=== PATIENT | male | born 1935 | race Caucasian/White ===

== ENCOUNTER 2016-03-04 13:00 | Emergency (ER) | payer MEDICARE, MEDICAID ==
[2016-03-04] MEDS ORDERED: DIPH,PERTUS(ACELL)TETVAC-LF 0.5 ML VIAL IM ONE (13:30)
[2016-03-04] MEDS ORDERED: TOPICAL SKIN ADHESIVE 1 EACH AMP TOPICAL ONE (13:30)
--- NOTE | 2016-03-04 13:33 | ED ---
General Adult HPI - General Chief complaint: Fall Stated complaint: Fall - Facial Injury Time Seen by Provider: 03/04/16 13:16 Source: patient, family, RN notes reviewed Mode of arrival: ambulatory Limitations: physical limitation - History of Present Illness Initial comments: Patient is an 80-year-old male who presents emergency room today with chief complaint of a fall earlier today. Patient does admit that he was getting out of bed and tripped fell hit his nose on the corner of the bedframe causes laceration. States unsure of his tetanus status. Denies any loss conscious. Denies any history of blood thinners. Denies any other complaints are associated symptoms. Patient denies any recent fever, chills, shortness of breath, chest pain, back pain, abdominal pain, nausea or vomiting, numbness or tingling, dysuria or hematuria, constipation or diarrhea, headaches or visual changes, or any other complaints. - Related Data Allergies Allergy/AdvReac Type Severity Reaction Status Date / Time cephalexin [From Keflex] Allergy Unknown Verified 03/04/16 13:06 Review of Systems ROS Statement: Those systems with pertinent positive or pertinent negative responses have been documented in the HPI. ROS Other: All systems not noted in ROS Statement are negative. Past Medical History Past Medical History: Diabetes Mellitus Additional Past Medical History / Comment(s): parkinsons, psoriasis History of Any Multi-Drug Resistant Organisms: None Reported Past Surgical History: Ear Surgery, Hernia Repair, Orthopedic Surgery Past Psychological History: Depression Smoking Status: Never smoker Past Alcohol Use History: None Reported Past Drug Use History: None Reported General Exam - General Exam Comments Initial Comments: General: The patient is awake and alert, in no distress, and does not appear acutely ill. Eye: Pupils are equal, round and reactive to light, extra-ocular movements are intact. No nystagmus. There is normal conjunctiva bilaterally. No signs of icterus. Ears, nose, mouth and throat: There are moist mucous membranes and no oral lesions. Neck: The neck is supple, there is no tenderness or JVD. Cardiovascular: There is a regular rate and rhythm. No murmur, rub or gallop is appreciated. Respiratory: Lungs are clear to auscultation, respirations are non-labored, breath sounds are equal. No wheezes, stridor, rales, or rhonchi. Musculoskeletal: Normal ROM, no tenderness. Strength 5/5. Sensation intact. Pulses equal bilaterally 2+. Neurological: A&O x 3. CN II-XII intact, There are no obvious motor or sensory deficits. Coordination appears grossly intact. Speech is normal. Skin: Does have a 1.5 cm linear laceration to the right side of his nose. No active bleeding. Psychiatric: Cooperative, appropriate mood & affect, normal judgment. Limitations: physical limitation Course Vital Signs 03/04/16 13:02 Temperature 98.1 F Pulse Rate 64 Respiratory 20 Rate Blood Pressure 127/60 O2 Sat by Pulse 96 Oximetry Procedures - Procedures Initial comment: Patient does have 1.5 cm linear laceration to the right side of her nose. No active bleeding. Wound edges approximated. Cleaned with saline. Closed with Dermabond. Patient tolerated well. Medical Decision Making - Medical Decision Making 80-year-old male presenting with a fall. Laceration to the right side of his nose. Tetanus will be updated. Laceration is closed here in emergency room. Patient has no other complaints. Patient discharged home. Disposition Clinical Impression: Laceration, Fall Disposition: HOME SELF-CARE Condition: Good Instructions: Laceration (ED) Additional Instructions: Please allow glue to fall off on his own over the next 3-5 days. Watch for any signs of infection which may include increased pain, redness, fever or chills. Please return to emergency room for any other concerns. Time of Disposition: 13:32
[2016-03-04 13:59] VITALS: BP 106/56; PULSE 66; RESP 16; TEMP 97.9
== END 2016-03-04 14:15 | disposition home or self-care (01) ==
LOC: EC 13:00
DX: S01.21XA Laceration without foreign body of nose, initial encounter (principal); Z23 Encounter for immunization; W01.190A Fall on same level from slipping, tripping and stumbling with subsequent striking against furniture, initial encounter; Z88.1 Allergy status to other antibiotic agents
CPT/HCPCS: 12011; 90471; 90715; 99283

== ENCOUNTER 2017-09-28 18:56 | Emergency (ER) | payer MEDICAID, MEDICARE ==
--- NOTE | 2017-09-28 20:36 | ED ---
General Adult HPI - General Chief complaint: Skin/Abscess/Foreign Body Stated complaint: Rash/Blisters Hands Time Seen by Provider: 09/28/17 20:11 Source: family Mode of arrival: ambulatory Limitations: physical limitation - History of Present Illness Initial comments: 82-year-old male presents to the emergency department for a chief complaint of rash to the palms of the hands times one day. Patient does have an extensive history of psoriasis which worsens when he is stressed. However, psoriasis has not presented like this in the past. Patient's recently had a hip fracture and patient had to cancel his appointment with his industrial hygienist. Patient denies starting any new medications. Patient denies working with any different chemicals or changing detergents. Patient denies any other problems at this time. Patient does not have pain when he touches the vesicles but states it does hurt if he makes a fist. Patient denies fevers or chills at home. Patient sees Dr. Salazar as a industrial hygienist out of [facility].Patient has no other complaints at this time including shortness of breath, chest pain, abdominal pain, nausea or vomiting, headache, or visual changes. - Related Data Home Medications Medication Instructions Recorded Confirmed Multivitamin [Men's Multi-Vitamin] 1 tab PO DAILY 03/04/16 03/04/16 Previous Rx's Medication Instructions Recorded Hydrocortisone Cream 1 applic TOPICAL BID 7 Days gm 09/28/17 [Hydrocortisone 2.5% Cream] Sulfamethox-Tmp 800-160Mg [Bactrim 1 tab PO Q12HR #14 tab 09/28/17 DS 800-160 mg] predniSONE 40 mg PO DAILY 5 Days tab 09/28/17 Allergies Allergy/AdvReac Type Severity Reaction Status Date / Time cephalexin [From Keflex] Allergy Unknown Verified 09/28/17 19:36 Review of Systems ROS Statement: Those systems with pertinent positive or pertinent negative responses have been documented in the HPI. ROS Other: All systems not noted in ROS Statement are negative. Past Medical History Past Medical History: Diabetes Mellitus Additional Past Medical History / Comment(s): parkinsons, psoriasis History of Any Multi-Drug Resistant Organisms: None Reported Past Surgical History: Ear Surgery, Hernia Repair, Orthopedic Surgery Past Psychological History: Depression Smoking Status: Never smoker Past Alcohol Use History: None Reported Past Drug Use History: None Reported General Exam Limitations: physical limitation General appearance: alert, in no apparent distress Head exam: Present: atraumatic, normocephalic, normal inspection Eye exam: Present: normal appearance. Absent: scleral icterus, conjunctival injection ENT exam: Present: normal exam, mucous membranes moist Neck exam: Present: normal inspection. Absent: tenderness, meningismus, lymphadenopathy Respiratory exam: Present: normal lung sounds bilaterally Cardiovascular Exam: Present: regular rate, normal rhythm, normal heart sounds. Absent: systolic murmur, diastolic murmur, rubs, gallop, clicks Extremities exam: Present: full ROM (Full range of motion of both hands bilaterally as well as both arms), normal capillary refill (Capillary refill less than 2 seconds in both hands bilaterally and radial and ulnar pulses 2+.), other (Patient has multiple small <0.5 cm x 0.5cm vesicles on the palms of the hands bilaterally. No spreading redness or streaking redness. Clear fluid noted in some of the vesicles. No vesicles on the arm or other parts of the body although patient does have psoriasis on the upper arms as well as left abdomen.) Course Vital Signs 09/28/17 19:34 Temperature 97.5 F L Pulse Rate 64 Respiratory 18 Rate Blood Pressure 138/64 O2 Sat by Pulse 98 Oximetry Medical Decision Making - Medical Decision Making 82-year-old male with multiple vesicles on the palms of the hands. Patient has an extensive history of psoriasis. Patient unfortunately had to cancel dermatology appointment. Nontender to palpation but patient does have some pain when making a fist with both hands bilaterally. No signs of infection at this time. I did try to contact his industrial hygienist but unfortunately the industrial hygienist cushion sewer for him was not able to give advice. At this time patient appears to have a dyshidrotic eczema and will be treated with steroids topically and oral. Patient will be covered with Bactrim. Dr Craig also saw patient. He is to follow-up with his industrial hygienist as soon as possible. He is to return to the emergency department if he has any worsening symptoms. Patient agrees with this discharge plan. Disposition Clinical Impression: Dyshidrotic eczema Disposition: HOME SELF-CARE Condition: Good Instructions: Dyshidrotic Eczema (ED) Additional Instructions: Please take prescriptions as directed. Please follow-up with your industrial hygienist as soon as possible on Sunday or earlier. Return to the emergency department if you have any worsening symptoms. Prescriptions: Hydrocortisone Cream [Hydrocortisone 2.5% Cream] 1 applic TOPICAL BID 7 Days gm predniSONE 40 mg PO DAILY 5 Days tab Sulfamethox-Tmp 800-160Mg [Bactrim DS 800-160 mg] 1 tab PO Q12HR #14 tab Is patient prescribed a controlled substance at d/c from ED?: No Referrals: Shiva Storm MD [Primary Care Provider] - 1-2 days Marin Vázquez MD [STAFF PHYSICIAN] - 1-2 days Time of Disposition: 21:49
[2017-09-28 22:05] VITALS: BP 159/7; PULSE 53; RESP 16; TEMP 97.9
== END 2017-09-28 22:03 | disposition home or self-care (01) ==
LOC: EC 18:56
DX: L30.1 Dyshidrosis [pompholyx] (principal); Z87.2 Personal history of diseases of the skin and subcutaneous tissue; Z88.1 Allergy status to other antibiotic agents
CPT/HCPCS: 99282

== ENCOUNTER → 2017-12-31 | Outpatient (CLI) | payer MEDICAID, MEDICARE ==
--- NOTE | 2017-12-31 16:37 | XR ---
EXAMINATION TYPE: XR chest 2V DATE OF EXAM: 12/31/2017 COMPARISON: NONE HISTORY: Shortness of breath, trauma and pain to right hip TECHNIQUE: Frontal and lateral views of the chest are obtained. FINDINGS: Patient is rotated. There is no focal air space opacity, pleural effusion, or pneumothorax seen. The cardiac silhouette size is within normal limits. The osseous structures are intact. The aorta is dense. Strand-like densities likely reflect some scarring within the lungs. IMPRESSION: No acute cardiopulmonary process.
--- NOTE | 2017-12-31 16:38 | XR ---
Right hip HISTORY: Trauma and pain 2 views of the right hip Bone mineralization, joint spaces and alignment are maintained. IMPRESSION: No fracture or dislocation.
== END | disposition home or self-care (01) ==
LOC: RADXRMAIN 13:57
PROVIDERS: ATTEND Internal Medicine Geriatric Medicine
DX: R06.02 Shortness of breath (principal); Z91.81 History of falling
CPT/HCPCS: 71046; 73502

== ENCOUNTER 2019-12-11 14:59 | Inpatient (IN) | payer MEDICARE, MEDICAID, OTHER ==
[2019-12-11 16:13] LABS: Basophils % (A) 0 %; Eosinophils # (A) 0.1 k/uL (0-0.7); Eosinophils % (A) 1 %; HCT 36.8 % (39.0-53.0); HGB 11.4 gm/dL (13.0-17.5); Lymphocytes # (A) 0.8 k/uL (1.0-4.8); Lymphocytes % (A) 5 %; MCH 30.5 pg (25.0-35.0); MCV 98.4 fL (80.0-100.0); Macrocytosis Slight; Mean Platelet Volume 8.4; Monocytes # (A) 0.4 k/uL (0-1.0); Monocytes % (A) 2 %; Neutrophils # (A) 14.9 k/uL (1.3-7.7); Neutrophils % (A) 92 %; Platelet Count 212 k/uL (150-450); RBC 3.74 m/uL (4.30-5.90); RDW 15.6 % (11.5-15.5); WBC 16.2 k/uL (3.8-10.6)
--- NOTE | 2019-12-11 16:15 | XR ---
EXAMINATION TYPE: XR chest 2V DATE OF EXAM: 12/11/2019 CLINICAL HISTORY: Cough TECHNIQUE: Frontal and lateral views of the chest are obtained. COMPARISON: 01/07/2018 chest radiograph FINDINGS: Low lung volumes accentuates the lung markings. The cardiac silhouette is within normal li mits for size. Calcified atherosclerotic disease of the thoracic aorta. There is no focal air space o pacity, pleural effusion. No pneumothorax, although there is soft tissue overlapping the bilateral aracely ng apices. Degenerative changes of the spine. IMPRESSION: No focal airspace opacity.
--- NOTE | 2019-12-11 16:17 | ED ---
General Adult HPI <Abdulaziz Tamayo - Last Filed: 12/11/19 17:05> - General Source: patient, EMS, RN notes reviewed, old records reviewed Mode of arrival: EMS Limitations: no limitations <Adam Aguilar - Last Filed: 12/11/19 18:18> - General Chief complaint: Skin/Abscess/Foreign Body Stated complaint: Auto immune flare up Time Seen by Provider: 12/11/19 15:20 - History of Present Illness Initial comments: 84-year-old male patient past history of psoriasis as well as bullous pemphigoid presents to ED after being sent in by Dr. Storm's nurse practitioner for failed outpatient treatment of acute flare of his bullous pemphigoid. Has been on IV steroids for at least last 4 days. Also has a poorly and having some drainage. Lesions are noted on his ankles wrists and elbows. Patient denying any pain or any other acute complaints. Patient does have a mild cough. Systemic: Pt denies fatigue, fever/chills. Pt denies weakness, night sweats, weight loss. Neuro: Pt denies headache, visual disturbances, syncope or pre-syncope. HEENT: Pt denies ocular discharge or irritation, otalgia, rhinorrhea, pharyngitis or notable lymphadenopathy. Cardiopulmonary: Pt denies chest pain, SOB, heart palpitations, dyspnea on exertion. Abdominal/GI: Pt denies abdominal pain, n/v/d. : Pt denies dysuria, burning w/ urination, frequency/urgency. Denies new onset urinary or bowel incontinence. MSK: Pt denies myalgia, loss of strength or function in extremities. Neuro: Pt denies new onset weakness, paresthesias. (Adam Aguilar) - Related Data Home Medications Medication Instructions Recorded Confirmed Multivitamin [Men's Multi-Vitamin] 1 tab PO DAILY@1700 03/04/16 05/20/18 Allopurinol [Zyloprim] 300 mg PO DAILY 01/07/18 05/20/18 Atorvastatin [Lipitor] 10 mg PO HS 01/07/18 05/20/18 Carbidopa-Levodopa 25-100 mg 1 tab PO BID@1200,2100 01/07/18 05/20/18 [Sinemet 25-100 mg] Carbidopa-Levodopa 25-100 mg 2 tab PO BID@0800,1700 01/07/18 05/20/18 [Sinemet 25-100 mg] Citalopram Hydrobromide [CeleXA] 40 mg PO DAILY@0800 01/07/18 05/20/18 Docusate [Colace] 100 mg PO HS 01/07/18 05/20/18 Furosemide [Lasix] 20 mg PO DAILY 01/07/18 05/20/18 Nabumetone 1,000 mg PO BID 01/07/18 05/20/18 Potassium Chloride [Klor-Con 20] 20 meq PO DAILY@1700 01/07/18 05/20/18 Sennosides [Senna] 8.6 mg PO DAILY 01/07/18 05/20/18 Tamsulosin HCl [Flomax] 0.4 mg PO HS 01/07/18 05/20/18 metFORMIN HCL [Glucophage] 500 mg PO BID@0800,1700 01/07/18 05/20/18 predniSONE 40 mg PO DAILY@0800 01/07/18 05/20/18 ARIPiprazole [Abilify] 10 mg PO DAILY 05/20/18 05/20/18 Acetaminophen [Tylenol] 650 mg PO Q4H PRN 05/20/18 05/20/18 Famotidine [Pepcid] 20 mg PO DAILY 05/20/18 05/20/18 INSULIN ASPART (NovoLOG) [NovoLOG See Protocol SQ ACHS 05/20/18 05/20/18 (formulary)] Lactulose [Cephulac] 30 gm PO BID@0800,1700 05/20/18 05/20/18 Latanoprost/Pf [Latanoprost 0.005% 1 drop BOTH EYES DAILY 05/20/18 05/20/18 Eye Drop] Magnesium Hydroxide [Milk of 7,200 mg PO DAILY PRN 05/20/18 05/20/18 Magnesia Concentrate] Na Phos,M-B/Na Phos,Di-Ba [Fleet 133 ml RECTAL DAILY PRN 05/20/18 05/20/18 Adult] bisacodyL [Dulcolax] 10 mg RECTAL DAILY PRN 05/20/18 05/20/18 hydrOXYzine HCL 10 mg PO Q6HR PRN 05/20/18 05/20/18 Previous Rx's Medication Instructions Recorded Acetaminophen-Codeine 300-30mg 1 tab PO Q8H PRN #9 tab 05/23/18 [Tylenol w/codeine #3] Amoxic-Pot Clav 875-125Mg 1 each PO Q12HR #12 tab 05/23/18 [Augmentin 875-125] clonazePAM 1 mg PO TID@0800,1400,2000 #9 05/23/18 tablet Allergies Allergy/AdvReac Type Severity Reaction Status Date / Time cephalexin [From Keflex] Allergy Unknown Verified 12/11/19 18:01 Review of Systems ROS Other: All systems not noted in ROS Statement are negative. <Abdulaziz Tamayo - Last Filed: 12/11/19 17:05> ROS Other: All systems not noted in ROS Statement are negative. <Adam Aguilar - Last Filed: 12/11/19 18:18> ROS Statement: Those systems with pertinent positive or pertinent negative responses have been documented in the HPI. Past Medical History Past Medical History: Diabetes Mellitus, GERD/Reflux, Hyperlipidemia, Osteoarthritis (OA), Prostate Disorder Additional Past Medical History / Comment(s): parkinsons, psoriasis, gout , constipation, prostate disorder, overactive bladder, GERD, hyperlipidemia, falls, gait dysfunction.bullous Pemphigoid - autoimmune skin disorder. [place] palsy recent urinary tract infection sleep apnea will not wear machine History of Any Multi-Drug Resistant Organisms: ESBL Date of last positivie culture/infection: 08/17/19 ESBL E.coli MDRO Source:: Urine Past Surgical History: Ear Surgery, Hernia Repair, Orthopedic Surgery Additional Past Surgical History / Comment(s): Bilateral cataracts, vasectomy Past Anesthesia/Blood Transfusion Reactions: Unable to Obtain Past Psychological History: Anxiety, Depression Smoking Status: Never smoker Past Alcohol Use History: None Reported Past Drug Use History: None Reported - Past Family History Mother Family Medical History: Diabetes Mellitus Father Family Medical History: No Reported History Additional Family Medical History / Comment(s): Anxiety Brother(s) Family Medical History: No Reported History Sister(s) Family Medical History: No Reported History Daughter(s) Family Medical History: No Reported History Son(s) Family Medical History: No Reported History <Adam Aguilar - Last Filed: 12/11/19 18:18> General Exam Limitations: no limitations <Adam Aguilar - Last Filed: 12/11/19 18:18> - General Exam Comments Initial Comments: Constitutional: NAD, AOX3, Pt has pleasant affect. HEENT: NC/AT, trachea midline, neck supple, no lymphadenopathy. External ears appear normal, without discharge. Mucous membranes moist. Eyes PERRLA, EOM intact. There is no scleral icterus. No pallor noted. Cardiopulmonary: RRR, no murmurs, rubs or gallops, no JVD noted. Lungs CTAB in anterior and posterior clemens. No peripheral edema. Abdominal exam: Abdomen soft and non-distended. Abdomen non-tender to palpation in all 4 quadrants. Bowel sounds active in LLQ. No hepatosplenomegaly. No ecchymosis Neuro: CN II-XII grossly intact. No nuchal rigidity. No raccon eyes, no mckeon sign, no hemotympanum. No cervical spinal tenderness. MSK:. Full active ROM in upper and lower extremities. Bullous lesions noted bilateral E, bilateral wrists and elbows. No streaking or obvious infection noted. No significant purulent drainage is noted. (Adam Aguilar) Course <Abdulaziz Tamayo - Last Filed: 12/11/19 17:05> Vital Signs 12/11/19 12/11/19 12/11/19 15:01 15:09 17:49 Temperature 97.6 F 97.9 F Pulse Rate 66 65 Respiratory 16 22 18 Rate Blood Pressure 146/93 128/69 O2 Sat by Pulse 99 100 Oximetry - Reevaluation(s) Reevaluation #1: 12/11/19 17:05 PA supervision: I pursued a [id number] evaluation the patient. He did present with failed outpatient treatment for bullous pemphigoid he has been on steroids in the lesions are getting more numerous and worse. Mostly on the extremities. Patient does demonstrate bullous lesions to the extremities both hands and both feet. I did discuss the case with the patient's as well as with Dr. Storm. Patient will be admitted with consultation to dermatology as well as infectious disease 12/11/19 17:06 (Abdulaziz Tamayo) Medical Decision Making - Lab Data Result diagrams: 12/11/19 15:53 12/11/19 15:53 <bAdulaziz Tamayo - Last Filed: 12/11/19 17:05> - Lab Data Result diagrams: 12/11/19 15:53 12/11/19 15:53 <Adam Aguilar - Last Filed: 12/11/19 18:18> - Medical Decision Making 84-year-old male patient proceeded for evaluation of acute exacerbation of bullous pemphigoid. Patient vital signs stable, afebrile. Physical exam didn't display these procedures described lesions. Laboratory investigations revealed mild leukocytosis. Case was discussed with Dr. Tamayo discussed case with Dr. Storm requested Solu-Medrol 60 mg every 6, doxycycline 100 mg twice a day. Patient has been having a mild cough. There have reportedly been a few cases of coronavvirus at his custodial. Patient placed on droplet precautions with pending coronavirus virus test. Case discussed with Dr. Tamayo. (Adam Aguilar) - Lab Data Lab Results 12/11/19 12/11/19 12/11/19 Range/Units 15:53 15:53 15:53 WBC 16.2 H (3.8-10.6) k/uL RBC 3.74 L (4.30-5.90) m/uL Hgb 11.4 L (13.0-17.5) gm/dL Hct 36.8 L (39.0-53.0) % MCV 98.4 (80.0-100.0) fL MCH 30.5 (25.0-35.0) pg MCHC 31.0 (31.0-37.0) g/dL RDW 15.6 H (11.5-15.5) % Plt Count 212 (150-450) k/uL Neutrophils % 92 % Lymphocytes % 5 % Monocytes % 2 % Eosinophils % 1 % Basophils % 0 % Neutrophils # 14.9 H (1.3-7.7) k/uL Lymphocytes # 0.8 L (1.0-4.8) k/uL Monocytes # 0.4 (0-1.0) k/uL Eosinophils # 0.1 (0-0.7) k/uL Basophils # 0.0 (0-0.2) k/uL Macrocytosis Slight Sodium 138 (137-145) mmol/L Potassium 4.4 (3.5-5.1) mmol/L Chloride 103 (98-107) mmol/L Carbon Dioxide 26 (22-30) mmol/L Anion Gap 9 mmol/L BUN 57 H (9-20) mg/dL Creatinine 1.08 (0.66-1.25) mg/dL Est GFR (CKD-EPI)AfAm 72 (>60 ml/min/1.73 sqM) Est GFR (CKD-EPI)NonAf 62 (>60 ml/min/1.73 sqM) Glucose 150 H (74-99) mg/dL Plasma Lactic Acid Robin 2.0 (0.7-2.0) mmol/L Calcium 9.4 (8.4-10.2) mg/dL Total Bilirubin 0.7 (0.2-1.3) mg/dL AST 22 (17-59) U/L ALT 8 (4-49) U/L Alkaline Phosphatase 89 (38-126) U/L Total Protein 6.4 (6.3-8.2) g/dL Albumin 3.5 (3.5-5.0) g/dL Disposition <Abdulaziz Tamayo - Last Filed: 12/11/19 17:05> <Adam Aguilar - Last Filed: 12/11/19 18:18> Clinical Impression: Cough, Bullous pemphigoid Disposition: ADMITTED IP TO THIS [facility] Condition: Serious
[2019-12-11 16:23] LABS: Albumin 3.5 g/dL (3.5-5.0); Calcium 9.4 mg/dL (8.4-10.2); Potassium 4.4 mmol/L (3.5-5.1); Total Bilirubin 0.7 mg/dL (0.2-1.3); Total Protein 6.4 g/dL (6.3-8.2)
[2019-12-11] MEDS ORDERED: PIPERACILLIN-TAZOBACTAM 3.375 GM in SODIUM CHLORIDE 0.9% 100 ML IVPB STA (16:43)
[2019-12-11] MEDS ORDERED: ACETAMINOPHEN TAB 325 MG TAB PO PRN ×2 (17:30→18:35)
[2019-12-11] MEDS ORDERED: NALOXONE 0.4 MG/ML 1 ML VIAL IV PRN (17:30)
[2019-12-11] MEDS ORDERED: MAGNESIUM HYDROXIDE 2,400 MG/10 ML CUP PO PRN (18:35)
[2019-12-11] MEDS ORDERED: Acetaminophen-Codeine 300-30mg TAB PO PRN (18:35)
[2019-12-11] MEDS ORDERED: NA PHOS,M-B/NA PHOS,DI-BA 133 ML ENEMA RECTAL PRN (18:35)
[2019-12-11] MEDS ORDERED: bisacodyL 10 MG SUPP RECTAL PRN (18:35)
[2019-12-11] MEDS ORDERED: LACTULOSE 20 GM/30 ML CUP PO PRN (18:35)
[2019-12-11] MEDS ORDERED: LOPERAMIDE 2 MG CAP PO PRN (18:35)
[2019-12-11] MEDS: methylPREDNISolone SOD SUCCI 125 MG/2 ML VIAL IV SCH ×2 (19:24→23:53)
[2019-12-11] MEDS ORDERED: ALBUTEROL NEBULIZED 2.5 MG/3 ML INHALATION PRN (20:27)
[2019-12-11] MEDS ORDERED: HYDROmorphone 1 MG/ML 1 ML SYRINGE IVP PRN (20:28)
[2019-12-11 21:44] LABS: Glucose,Whole Blood 169 mg/dL (75-99)
[2019-12-11] MEDS: ATORVASTATIN 10 MG TAB PO SCH (21:49)
[2019-12-11] MEDS: INSULIN ASPART (NovoLOG) 100 UNIT/ML VIAL SQ SCH (21:50)
[2019-12-11] MEDS: DOXYCYCLINE 100 MG in SODIUM CHLORIDE 0.9% 100 ML IVPB SCH (21:50)
[2019-12-11] MEDS: CARBIDOPA-LEVODOPA 25-100 MG 1 EACH TAB PO SCH (21:50)
[2019-12-11] MEDS: LATANOPROST 0.005% OPHTH DROPS 2.5 ML BTL BOTH EYES SCH (21:50)
[2019-12-11] MEDS ORDERED: VANCOMYCIN IV PER PHARMACY 1 EACH MISC MISCELLANE PRN (22:02)
--- NOTE | 2019-12-11 23:01 | P.HPIM ---
History of Present Illness H&P Date: 12/11/19 Chief Complaint: Bullous pemphigoid exacerbation, fever and chills, generalized cellulitis, 84-year-old male one of my office patient has been in [facility] for the last 3 years with history of advance psoriasis, history of pemphigoid with recurrent exacerbation every 2 years who has been on steroids for the last few weeks who also had significant Parkinson disease, type 2 diabetes, hypertension and hyperlipidemia. Patient developed to have worsening pemphigoid symptoms with bulla all over his body including the upper extremity, the left elbow, the sacrum area, partially is Fiona Do as well with multiple water blister rupturing and causing secondary cellulitis. Despite being on steroid and having to do full 48 hours of Solu-Medrol injection did not help his symptoms. Patient continued to be symptomatic with fever chills worsening pain and recurrent new pemphigoid. Patient was directly to the emergency department where was seen and evaluated his white blood cell was 16,000 left shifted his bun was 57 with stage II chronic kidney disease blood sugar was mildly elevated patient was started on Solu-Medrol IV will consult dermatology and infectious disease also a Chin was started on vancomycin IV culture was done already pain management was started on Dilaudid as well along with topical care continue gentle hydration. To my surprise patient started to have mild aspiration sign with slight cough and congestion. Will start him on updraft along with O2 follow his chest x-ray from the ER showed low lung volume with no focal airspace opacity. Review of Systems CONSTITUTIONAL: Well-developed no acute respiratory distress. EYES: No icterus sclerae, no conjunctivitis. EARS, NOSE, MOUTH, THROAT, and FACE: No sore throat, lymphadenopathy, carotid bruits or deformity. RESPIRATORY: Significant shortness of breath mild cough wheezes. CARDIOVASCULAR: Positive PND at 70 palpitation. GASTROINTESTINAL: No Abd pain, Nausea or vomiting, no Diarrhea or constipation, No GI Bleed, no distention or masses. GENITOURINARY: Negative for Hematuria or UTI, no kidney stones. INTEGUMENT/BREAST: Positive pemphigoid with worsening symptoms generalized muscle and joint pain as well. HEMATOLOGIC/LYMPHATIC: Negative for bleed or purpura. MUSCULOSKELTAL: Negative for Myalgia or arthralgia. NEURLOGICAL: Positive Parkinson disease mild change mental status slight confusion. BEHAVIORAL/PSYCH: Negative. ENDOCRINE: Negative. Past Medical History Past Medical History: Diabetes Mellitus, GERD/Reflux, Hyperlipidemia, Osteoarthritis (OA), Prostate Disorder Additional Past Medical History / Comment(s): parkinsons, psoriasis, gout , constipation, prostate disorder, overactive bladder, GERD, hyperlipidemia, falls, gait dysfunction.bullous Pemphigoid - autoimmune skin disorder. [place] palsy recent urinary tract infection sleep apnea will not wear machine History of Any Multi-Drug Resistant Organisms: ESBL Date of last positivie culture/infection: 08/17/19 ESBL E.coli MDRO Source:: Urine Past Surgical History: Ear Surgery, Hernia Repair, Orthopedic Surgery Additional Past Surgical History / Comment(s): Bilateral cataracts, vasectomy, bilateral knees Past Anesthesia/Blood Transfusion Reactions: Unable to Obtain Past Psychological History: Anxiety, Depression Smoking Status: Never smoker Past Alcohol Use History: None Reported Past Drug Use History: None Reported - Past Family History Mother Family Medical History: Diabetes Mellitus Father Family Medical History: No Reported History Additional Family Medical History / Comment(s): Anxiety Brother(s) Family Medical History: No Reported History Sister(s) Family Medical History: No Reported History Daughter(s) Family Medical History: No Reported History Son(s) Family Medical History: No Reported History Medications and Allergies Home Medications Medication Instructions Recorded Confirmed Type Multivitamin [Men's Multi-Vitamin] 1 tab PO DAILY@1200 03/04/16 12/11/19 History Allopurinol [Zyloprim] 300 mg PO DAILY@0800 01/07/18 12/11/19 History Atorvastatin [Lipitor] 10 mg PO HS@209901/07/18 12/11/19 History Carbidopa-Levodopa 25-100 mg 1 tab PO BID@1200,209901/07/18 12/11/19 History [Sinemet 25-100 mg] Carbidopa-Levodopa 25-100 mg 2 tab PO BID@0800,1700 01/07/18 12/11/19 History [Sinemet 25-100 mg] Nabumetone 1,000 mg PO BID@0800,1700 01/07/18 12/11/19 History Potassium Chloride [Klor-Con 20] 20 meq PO DAILY@0800 01/07/18 12/11/19 History Sennosides [Senna] 8.6 mg PO DAILY@0800 01/07/18 12/11/19 History Tamsulosin HCl [Flomax] 0.4 mg PO DAILY@0800 01/07/18 12/11/19 History metFORMIN HCL [Glucophage] 500 mg PO BID@0800,1700 01/07/18 12/11/19 History Acetaminophen [Tylenol] 650 mg PO Q4H PRN 05/20/18 12/11/19 History Lactulose [Cephulac] 30 gm PO DAILY PRN 05/20/18 12/11/19 History Latanoprost/Pf [Latanoprost 0.005% 1 drop BOTH EYES HS@2100 05/20/18 12/11/19 History Eye Drop] Magnesium Hydroxide [Milk of 7,200 mg PO DAILY PRN 05/20/18 12/11/19 History Magnesia Concentrate] Na Phos,M-B/Na Phos,Di-Ba [Fleet 133 ml RECTAL DAILY PRN 05/20/18 12/11/19 History Adult] bisacodyL [Dulcolax] 10 mg RECTAL DAILY PRN 05/20/18 12/11/19 History Acetaminophen-Codeine 300-30mg 1 tab PO Q8H PRN #9 tab 05/23/18 12/11/19 Rx [Tylenol w/codeine #3] ARIPiprazole [Abilify] 5 mg PO DAILY@0800 12/11/19 12/11/19 History Brimonidine Tartrate/Timolol 1 drop BOTH EYES BID@0800,1700 12/11/19 12/11/19 History [Combigan 0.2%-0.5% Eye Drops] Docusate [Colace] 100 mg PO DAILY@1700 12/11/19 12/11/19 History Dorzolamide HCl [Trusopt 2%] 1 drop BOTH EYES BID@0800,1700 12/11/19 12/11/19 History Furosemide [Lasix] 40 mg PO DAILY@0800 12/11/19 12/11/19 History Furosemide [Lasix] 40 mg PO Q48H 12/11/19 12/11/19 History Insulin Aspart See Protocol SQ 12/11/19 12/11/19 History ACHS@07,11,1630,2130 Loperamide HCl [Imodium A-D] 4 mg PO DAILY PRN MDD 4 tabs/24hr 12/11/19 12/11/19 History PARoxetine [Paxil] 10 mg PO DAILY@0800 12/11/19 12/11/19 History clonazePAM 1 mg PO TID@0800,1200,1700 12/11/19 12/11/19 History predniSONE 30 mg PO DAILY 12/11/19 12/11/19 History predniSONE [Deltasone] 40 mg PO DAILY@0800 12/11/19 12/11/19 History Allergies Allergy/AdvReac Type Severity Reaction Status Date / Time cephalexin [From Keflex] Allergy Unknown Verified 12/11/19 18:01 Physical Exam Vitals: Vital Signs Temp Pulse Pulse Resp BP BP Pulse Ox 12/11/19 20:00 97.9 F 71 173/78 96 12/11/19 17:49 97.9 F 65 18 128/69 100 12/11/19 15:09 22 12/11/19 15:01 97.6 F 66 16 146/93 99 Intake and Output 12/11/19 12/11/19 12/11/19 06:59 14:59 22:59 Other: Weight 122.47 kg General Appearance: Alert, cooperative, no distress, appears stated age. Neck HEENT: Supple, no lymphadenopathy, no thyroid enlargement, positive slight dermatitis in the neck area. Lungs: Decreased breaths home bilaterally with fine rhonchi specially the right side has mild expiratory wheezes. Chest Wall: Decrease expansion with deep inspiration no tenderness and no deformity was found on exam, no costochondral pain or discomfort. Heart: Regular rate and rhythm, S1, S2 , positive S3 with systolic murmur. Back: Symmetric, no curvature, ROM normal, no CVA tenderness. Large spot of pemphigoid on the sacrum. Abdomen: Soft, non-tender, bowel sounds active all four quadrants, no masses, no organomegaly. Few spot of large psoriasis and abdominal area with to spot of pemphigoid as well. Extremities: Positive pemphigoid in both wrists and with large blister on the left wrist area this structure with dressing was done at the time of exam, lower extremity patient has pemphigoid on the knee especially the left compared to the right side with an area on the ankle area side by side with several smaller areas well. Pulses: 2+ and symmetric. Skin: Skin color, texture, tugor normal, no rashes or lesions. Neurologic: Alert oriented slight confusion, cranial nerves II through XII intact, positive generalized weakness positive resting tremor with typical parkinsonism. Generalized weakness bilaterally. Results CBC & Chem 7: 12/11/19 15:53 12/11/19 15:53 Labs: Abnormal Lab Results - Last 24 Hours (Table) 12/11/19 12/11/19 12/11/19 Range/Units 15:53 15:53 21:42 WBC 16.2 H (3.8-10.6) k/uL RBC 3.74 L (4.30-5.90) m/uL Hgb 11.4 L (13.0-17.5) gm/dL Hct 36.8 L (39.0-53.0) % RDW 15.6 H (11.5-15.5) % Neutrophils # 14.9 H (1.3-7.7) k/uL Lymphocytes # 0.8 L (1.0-4.8) k/uL BUN 57 H (9-20) mg/dL Glucose 150 H (74-99) mg/dL POC Glucose (mg/dL) 169 H (75-99) mg/dL Thrombosis Risk Factor Assmnt - DVT/VTE Prophylaxis DVT/VTE Prophylaxis: Pharmacologic Prophylaxis ordered, Mechanical Prophylaxis ordered - Choose All That Apply Any of the Below Risk Factors Present?: Yes Each Factor Represents 1 point: Medical pt on bed rest, Obesity (BMI >25) Other Risk Factors: Yes Each Risk Factor Represents 3 Points: Age 75 years or older Thrombosis Risk Factor Assessment Total Risk Factor Score: 5 Thrombosis Risk Factor Assessment Level: High Risk Assessment and Plan Assessment: 1 severe exacerbation of bullous pemphigoid: Patient was started on Solu-Medrol 60 mg every 6 hours continue medication for now consult infectious disease and dermatology. 2 severe cellulitis on the top of pemphigoid, patient was started on Aztreonam, along with vancomycin and Doxy. Continue current management watching for final culture. 3 type 2 diabetes: Continue Accu-Chek with sliding scales coverage will hold metformin for now and might start Lantus and NovoLog before meals meals. 4 mild congestion and worsening bronchitis with possible aspiration pneumonia: Patient will remain on Vanco along with coverage for gram-negative still on updraft treatment and steroid. 5 advance Parkinson disease: Patient remain on carbidopa levodopa 25/100 mg total of 6 doses a day. Remain on medication. 6 chronic diastolic congestive heart failure: Patient remain on furosemide 40 mg daily and spironolactone. 7 hyperlipidemia: On Lipitor 10 mg daily. 8 chronic gout: Continue patient on Zyloprim 300 mg daily. 9 BPH with urinary retention: Remain on tamsulosin 0.4 mg daily. 10 chronic depression: Continue patient on. 11 DVT prophylaxis: Patient will be continue on subcu heparin. 12 GI prophylaxis: Continue pantoprazole. CODE STATUS: DO NOT RESUSCITATE. Admit patient to the inpatient service for more than 2 night stay.
--- NOTE | 2019-12-11 23:45 | P.CONS ---
History of Present Illness - Reason for Consult Consult date: 12/11/19 Cellulitis and possible pneumonia Requesting physician: Shiva Storm - Chief Complaint Cough and bilateral lower and upper extremity blisters x few days - History of Present Illness Patient is 84-year-old male with a past medical history significant for psoriasis history of pemphigoid this patient who is a [facility] resident patient was noticed to have worsening blister formation on the last few days for the patient has been treated with IV Solu-Medrol at the [facility] however the patient seemed to have progressive worsening and the patient was advised to be evaluated in the ER and subsequent admission Hospital history was provided mostly by the daughter at the bedside as the patient has developed blisters on the bilateral upper extremity as well as in the bilateral feet and the groin area some of them has ruptured with resultant superficial ulceration that is mostly clear fluid drainage no purulence the patient also noticed to have a congested cough but no clear history of any aspiration with these symptoms the patient has been evaluated by the ER physician on arrival to the emergency room the patient was afebrile he did have elevated white was 16,000 creatinine was 1.08, liver enzymes normal patient has been admitted to the hospital infectious disease was considered for further management of antibiotic therapy Review of Systems Positive points has been mentioned in HPI complete review could not be obtained because of his underlying mental status Past Medical History Past Medical History: Diabetes Mellitus, GERD/Reflux, Hyperlipidemia, Osteoarthritis (OA), Prostate Disorder Additional Past Medical History / Comment(s): parkinsons, psoriasis, gout , constipation, prostate disorder, overactive bladder, GERD, hyperlipidemia, falls, gait dysfunction.bullous Pemphigoid - autoimmune skin disorder. [place] palsy recent urinary tract infection sleep apnea will not wear machine History of Any Multi-Drug Resistant Organisms: ESBL Year Discovered:: 08/17/19 ESBL E.coli MDRO Source:: Urine Past Surgical History: Ear Surgery, Hernia Repair, Orthopedic Surgery Additional Past Surgical History / Comment(s): Bilateral cataracts, vasectomy, bilateral knees Past Anesthesia/Blood Transfusion Reactions: Unable to Obtain Past Psychological History: Anxiety, Depression Smoking Status: Never smoker Past Alcohol Use History: None Reported Past Drug Use History: None Reported - Past Family History Mother Family Medical History: Diabetes Mellitus Father Family Medical History: No Reported History Additional Family Medical History / Comment(s): Anxiety Brother(s) Family Medical History: No Reported History Sister(s) Family Medical History: No Reported History Daughter(s) Family Medical History: No Reported History Son(s) Family Medical History: No Reported History Medications and Allergies Home Medications Medication Instructions Recorded Confirmed Type Multivitamin [Men's Multi-Vitamin] 1 tab PO DAILY@1200 03/04/16 12/11/19 History Allopurinol [Zyloprim] 300 mg PO DAILY@0800 01/07/18 12/11/19 History Atorvastatin [Lipitor] 10 mg PO HS@209901/07/18 12/11/19 History Carbidopa-Levodopa 25-100 mg 1 tab PO BID@1200,209901/07/18 12/11/19 History [Sinemet 25-100 mg] Carbidopa-Levodopa 25-100 mg 2 tab PO BID@0800,1700 01/07/18 12/11/19 History [Sinemet 25-100 mg] Nabumetone 1,000 mg PO BID@0800,1700 01/07/18 12/11/19 History Potassium Chloride [Klor-Con 20] 20 meq PO DAILY@0800 01/07/18 12/11/19 History Sennosides [Senna] 8.6 mg PO DAILY@0800 01/07/18 12/11/19 History Tamsulosin HCl [Flomax] 0.4 mg PO DAILY@0800 01/07/18 12/11/19 History metFORMIN HCL [Glucophage] 500 mg PO BID@0800,1700 01/07/18 12/11/19 History Acetaminophen [Tylenol] 650 mg PO Q4H PRN 05/20/18 12/11/19 History Lactulose [Cephulac] 30 gm PO DAILY PRN 05/20/18 12/11/19 History Latanoprost/Pf [Latanoprost 0.005% 1 drop BOTH EYES HS@209905/20/18 12/11/19 History Eye Drop] Magnesium Hydroxide [Milk of 7,200 mg PO DAILY PRN 05/20/18 12/11/19 History Magnesia Concentrate] Na Phos,M-B/Na Phos,Di-Ba [Fleet 133 ml RECTAL DAILY PRN 05/20/18 12/11/19 History Adult] bisacodyL [Dulcolax] 10 mg RECTAL DAILY PRN 05/20/18 12/11/19 History Acetaminophen-Codeine 300-30mg 1 tab PO Q8H PRN #9 tab 05/23/18 12/11/19 Rx [Tylenol w/codeine #3] ARIPiprazole [Abilify] 5 mg PO DAILY@0800 12/11/19 12/11/19 History Brimonidine Tartrate/Timolol 1 drop BOTH EYES BID@0800,1700 12/11/19 12/11/19 History [Combigan 0.2%-0.5% Eye Drops] Docusate [Colace] 100 mg PO DAILY@1700 12/11/19 12/11/19 History Dorzolamide HCl [Trusopt 2%] 1 drop BOTH EYES BID@0800,1700 12/11/19 12/11/19 History Furosemide [Lasix] 40 mg PO DAILY@0800 12/11/19 12/11/19 History Furosemide [Lasix] 40 mg PO Q48H 12/11/19 12/11/19 History Insulin Aspart See Protocol SQ 12/11/19 12/11/19 History ACHS@07,11,1630,2130 Loperamide HCl [Imodium A-D] 4 mg PO DAILY PRN MDD 4 tabs/24hr 12/11/19 12/11/19 History PARoxetine [Paxil] 10 mg PO DAILY@0800 12/11/19 12/11/19 History clonazePAM 1 mg PO TID@0800,1200,1700 12/11/19 12/11/19 History predniSONE 30 mg PO DAILY 12/11/19 12/11/19 History predniSONE [Deltasone] 40 mg PO DAILY@0800 12/11/19 12/11/19 History Allergies Allergy/AdvReac Type Severity Reaction Status Date / Time cephalexin [From Keflex] Allergy Unknown Verified 12/11/19 18:01 Physical Exam Vitals: Vital Signs Temp Pulse Pulse Resp BP BP Pulse Ox 12/11/19 20:00 97.9 F 71 173/78 96 12/11/19 17:49 97.9 F 65 18 128/69 100 12/11/19 15:09 22 12/11/19 15:01 97.6 F 66 16 146/93 99 Intake and Output 12/11/19 12/11/19 12/11/19 06:59 14:59 22:59 Other: Weight 122.47 kg GENERAL DESCRIPTION: An elderly male lying in bed, no distress. No tachypnea or accessory muscle of respiration use. HEENT: Shows Pallor , no scleral icterus. Oral mucous membrane is dry. No pharyngeal erythema or thrush NECK: Trachea central, no thyromegaly. LUNGS: Unlabored breathing. Coarse breath sounds bilaterally. No wheeze or crackle. HEART: S1, S2, regular rate and rhythm. No loud murmur ABDOMEN: Soft, no tenderness , guarding or rigidity, no organomegaly EXTREMITIES: No edema of feet. SKIN: Multiple blisters especially on the bilateral feet and some superficial ulceration from ruptured blister NEUROLOGICAL: The patient is lethargic orientation could not be determined Results CBC & Chem 7: 12/11/19 15:53 12/11/19 15:53 Labs: Abnormal Lab Results - Last 24 Hours (Table) 12/11/19 12/11/19 12/11/19 Range/Units 15:53 15:53 21:42 WBC 16.2 H (3.8-10.6) k/uL RBC 3.74 L (4.30-5.90) m/uL Hgb 11.4 L (13.0-17.5) gm/dL Hct 36.8 L (39.0-53.0) % RDW 15.6 H (11.5-15.5) % Neutrophils # 14.9 H (1.3-7.7) k/uL Lymphocytes # 0.8 L (1.0-4.8) k/uL BUN 57 H (9-20) mg/dL Glucose 150 H (74-99) mg/dL POC Glucose (mg/dL) 169 H (75-99) mg/dL Assessment and Plan Assessment: 1- patient is 84 year male with a past medical history negative for psoriasis and bullous pemphigoid presenting to the hospital with worsening bullous lesion on his upper and lower extremity some superficial ulceration and concern for possible cellulitis apparently the patient did have a fever at the [facility] from referring her has been recorded here did have elevated white count also noticed to have a congested cough with concern for possible pneumonia and will need to cover for resistant gram-positive as well as gram-negative pathogen 2- cephalexin ALLERGY that will limit the number of antibiotic safe to use (1) Bullous pemphigoid Current Visit: Yes Status: Acute Code(s): L12.0 - BULLOUS PEMPHIGOID SNOMED Code(s): 57202283 (2) Cough Current Visit: Yes Status: Acute Code(s): R05 - COUGH SNOMED Code(s): 05795401 Plan: 1-we will try to obtain sputum for Gram stain and culture 2-repeat a chest x-ray tomorrow 3-check a CRP and pro-calcitonin level 4-dry protective dressing to the bullous lesion 5-Vancomycin pharmacy to dose target trough of 15 while watching kidney function and Vanco trough closely 6-Azactam 2 g every 12 hours We will follow on clinical condition and cultures to further adjust medication if needed Thank you for this consultation will follow this patient with you Time with Patient: Greater than 30
[2019-12-11] MEDS: AZTREONAM 2 GM in SODIUM CHLORIDE 0.9% 100 ML IVPB SCH (23:53)
[2019-12-11] MEDS: VANCOMYCIN 1,750 MG in SODIUM CHLORIDE 0.9% 500 ML 500 ML IVPB SCH (23:54)
[2019-12-12] MEDS ORDERED: PIPERACILLIN-TAZOBACTAM 3.375 GM in SODIUM CHLORIDE 0.9% 100 ML IVPB SCH ×2
[2019-12-12] MEDS: methylPREDNISolone SOD SUCCI 125 MG/2 ML VIAL IV SCH ×4 (05:45→23:21)
[2019-12-12 06:51] LABS: Basophils % (A) 0 %; Eosinophils % (A) 0 %; HCT 33.4 % (39.0-53.0); HGB 10.3 gm/dL (13.0-17.5); Lymphocytes # (A) 0.9 k/uL (1.0-4.8); Lymphocytes % (A) 7 %; MCH 30.3 pg (25.0-35.0); MCHC 30.9 g/dL (31.0-37.0); Mean Platelet Volume 8.5; Monocytes # (A) 0.3 k/uL (0-1.0); Monocytes % (A) 3 %; Neutrophils # (A) 10.7 k/uL (1.3-7.7); Neutrophils % (A) 90 %; Platelet Count 203 k/uL (150-450); RDW 15.4 % (11.5-15.5); WBC 11.9 k/uL (3.8-10.6)
--- NOTE | 2019-12-12 08:10 | P.GSCN ---
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 He has a chronic indwelling catheter. Infectious disease wanted a urine culture. He requested the catheter be replaced. The nursing staff was unable to do so. They were unable to remove the catheter. We are asked see the patient. The patient can give no history. Review of Systems ROS unobtainable: due to mental status Past Medical History Past Medical History: Diabetes Mellitus, GERD/Reflux, Hyperlipidemia, Osteoarthritis (OA), Prostate Disorder Additional Past Medical History / Comment(s): parkinsons, psoriasis, gout , constipation, prostate disorder, overactive bladder, GERD, hyperlipidemia, falls, gait dysfunction.bullous Pemphigoid - autoimmune skin disorder. 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 Past Surgical History: Ear Surgery, Hernia Repair, Orthopedic Surgery Additional Past Surgical History / Comment(s): Bilateral cataracts, vasectomy, bilateral knees Past Anesthesia/Blood Transfusion Reactions: Unable to Obtain Past Psychological History: Anxiety, Depression Smoking Status: Never smoker Past Alcohol Use History: None Reported Past Drug Use History: None Reported - Past Family History Mother Family Medical History: Diabetes Mellitus Father Family Medical History: No Reported History Additional Family Medical History / Comment(s): Anxiety Brother(s) Family Medical History: No Reported History Sister(s) Family Medical History: No Reported History Daughter(s) Family Medical History: No Reported History Son(s) Family Medical History: No Reported History Medications and Allergies Home Medications Medication Instructions Recorded Confirmed Type Multivitamin [Men's Multi-Vitamin] 1 tab PO DAILY@1200 03/04/16 12/11/19 History Allopurinol [Zyloprim] 300 mg PO DAILY@0800 01/07/18 12/11/19 History Atorvastatin [Lipitor] 10 mg PO HS@209901/07/18 12/11/19 History Carbidopa-Levodopa 25-100 mg 1 tab PO BID@1200,209901/07/18 12/11/19 History [Sinemet 25-100 mg] Carbidopa-Levodopa 25-100 mg 2 tab PO BID@0800,1700 01/07/18 12/11/19 History [Sinemet 25-100 mg] Nabumetone 1,000 mg PO BID@0800,1700 01/07/18 12/11/19 History Potassium Chloride [Klor-Con 20] 20 meq PO DAILY@0800 01/07/18 12/11/19 History Sennosides [Senna] 8.6 mg PO DAILY@0800 01/07/18 12/11/19 History Tamsulosin HCl [Flomax] 0.4 mg PO DAILY@0800 01/07/18 12/11/19 History metFORMIN HCL [Glucophage] 500 mg PO BID@0800,1700 01/07/18 12/11/19 History Acetaminophen [Tylenol] 650 mg PO Q4H PRN 05/20/18 12/11/19 History Lactulose [Cephulac] 30 gm PO DAILY PRN 05/20/18 12/11/19 History Latanoprost/Pf [Latanoprost 0.005% 1 drop BOTH EYES HS@2100 05/20/18 12/11/19 History Eye Drop] Magnesium Hydroxide [Milk of 7,200 mg PO DAILY PRN 05/20/18 12/11/19 History Magnesia Concentrate] Na Phos,M-B/Na Phos,Di-Ba [Fleet 133 ml RECTAL DAILY PRN 05/20/18 12/11/19 History Adult] bisacodyL [Dulcolax] 10 mg RECTAL DAILY PRN 05/20/18 12/11/19 History Acetaminophen-Codeine 300-30mg 1 tab PO Q8H PRN #9 tab 05/23/18 12/11/19 Rx [Tylenol w/codeine #3] ARIPiprazole [Abilify] 5 mg PO DAILY@0800 12/11/19 12/11/19 History Brimonidine Tartrate/Timolol 1 drop BOTH EYES BID@0800,169912/11/19 12/11/19 History [Combigan 0.2%-0.5% Eye Drops] Docusate [Colace] 100 mg PO DAILY@1700 12/11/19 12/11/19 History Dorzolamide HCl [Trusopt 2%] 1 drop BOTH EYES BID@0800,1700 12/11/19 12/11/19 History Furosemide [Lasix] 40 mg PO DAILY@0800 12/11/19 12/11/19 History Furosemide [Lasix] 40 mg PO Q48H 12/11/19 12/11/19 History Insulin Aspart See Protocol SQ 12/11/19 12/11/19 History ACHS@07,11,1630,2130 Loperamide HCl [Imodium A-D] 4 mg PO DAILY PRN MDD 4 tabs/24hr 12/11/19 12/11/19 History PARoxetine [Paxil] 10 mg PO DAILY@0800 12/11/19 12/11/19 History clonazePAM 1 mg PO TID@0800,1200,1700 12/11/19 12/11/19 History predniSONE 30 mg PO DAILY 12/11/19 12/11/19 History predniSONE [Deltasone] 40 mg PO DAILY@0800 12/11/19 12/11/19 History Allergies Allergy/AdvReac Type Severity Reaction Status Date / Time cephalexin [From Keflex] Allergy Unknown Verified 12/11/19 18:01 Surgical - Exam Vital Signs Temp Pulse Resp BP Pulse Ox 97.6 F 66 16 146/93 99 12/11/19 15:01 12/11/19 15:01 12/11/19 15:01 12/11/19 15:01 12/11/19 15:01 - General well developed, well nourished - Eyes PERRL - Neck trachea midline - Respiratory normal expansion, normal respiratory effort - Cardiovascular Rhythm: regular - Abdomen Abdomen: soft, non tender - Genitourinary Circumcised phallus, hypospadiac urethra due to catheter erosion, indwelling catheter - Neurologic disoriented Results - Labs 12/12/19 06:30 12/11/19 15:53 Abnormal Lab Results - Last 24 Hours (Table) 12/11/19 12/11/19 12/11/19 Range/Units 15:53 15:53 21:42 WBC 16.2 H (3.8-10.6) k/uL RBC 3.74 L (4.30-5.90) m/uL Hgb 11.4 L (13.0-17.5) gm/dL Hct 36.8 L (39.0-53.0) % MCHC (31.0-37.0) g/dL RDW 15.6 H (11.5-15.5) % Neutrophils # 14.9 H (1.3-7.7) k/uL Lymphocytes # 0.8 L (1.0-4.8) k/uL BUN 57 H (9-20) mg/dL Glucose 150 H (74-99) mg/dL POC Glucose (mg/dL) 169 H (75-99) mg/dL 12/12/19 Range/Units 06:30 WBC 11.9 H (3.8-10.6) k/uL RBC 3.40 L (4.30-5.90) m/uL Hgb 10.3 L (13.0-17.5) gm/dL Hct 33.4 L (39.0-53.0) % MCHC 30.9 L (31.0-37.0) g/dL RDW (11.5-15.5) % Neutrophils # 10.7 H (1.3-7.7) k/uL Lymphocytes # 0.9 L (1.0-4.8) k/uL BUN (9-20) mg/dL Glucose (74-99) mg/dL POC Glucose (mg/dL) (75-99) mg/dL Diabetes panel 12/11/19 Range/Units 15:53 Sodium 138 (137-145) mmol/L Potassium 4.4 (3.5-5.1) mmol/L Chloride 103 (98-107) mmol/L Carbon Dioxide 26 (22-30) mmol/L BUN 57 H (9-20) mg/dL Creatinine 1.08 (0.66-1.25) mg/dL Glucose 150 H (74-99) mg/dL Calcium 9.4 (8.4-10.2) mg/dL AST 22 (17-59) U/L ALT 8 (4-49) U/L Alkaline Phosphatase 89 (38-126) U/L Total Protein 6.4 (6.3-8.2) g/dL Albumin 3.5 (3.5-5.0) g/dL Calcium panel 12/11/19 Range/Units 15:53 Calcium 9.4 (8.4-10.2) mg/dL Albumin 3.5 (3.5-5.0) g/dL Pituitary panel 12/11/19 Range/Units 15:53 Sodium 138 (137-145) mmol/L Potassium 4.4 (3.5-5.1) mmol/L Chloride 103 (98-107) mmol/L Carbon Dioxide 26 (22-30) mmol/L BUN 57 H (9-20) mg/dL Creatinine 1.08 (0.66-1.25) mg/dL Glucose 150 H (74-99) mg/dL Calcium 9.4 (8.4-10.2) mg/dL Adrenal panel 12/11/19 Range/Units 15:53 Sodium 138 (137-145) mmol/L Potassium 4.4 (3.5-5.1) mmol/L Chloride 103 (98-107) mmol/L Carbon Dioxide 26 (22-30) mmol/L BUN 57 H (9-20) mg/dL Creatinine 1.08 (0.66-1.25) mg/dL Glucose 150 H (74-99) mg/dL Calcium 9.4 (8.4-10.2) mg/dL Total Bilirubin 0.7 (0.2-1.3) mg/dL AST 22 (17-59) U/L ALT 8 (4-49) U/L Alkaline Phosphatase 89 (38-126) U/L Total Protein 6.4 (6.3-8.2) g/dL Albumin 3.5 (3.5-5.0) g/dL Assessment and Plan Assessment: Impression: Catheter malfunction, bullous pemphigoid with sepsis. Possible urinary tract infection with sepsis Recommendations removed catheter and replace
--- NOTE | 2019-12-12 08:11 | P.PCN ---
Date of Procedure: 12/12/19 Preoperative Diagnosis: Inability removed catheter Postoperative Diagnosis: Same secondary to calcareous debris at tip of catheter Procedure(s) Performed: Difficult catheter removal and replacement Anesthesia: none Surgeon: Andry Pierce Pathology: none sent Condition: stable Disposition: floor Indications for Procedure: The patient is in the hospital with apparent exacerbation of bullous pemphigoid. He is seen by infectious disease and there is a question of urinary tract infection with sepsis. They wish catheter replacement. The nursing staff was unable remove the catheter. Description of Procedure: Patient is prepped and draped sterilely. I deflate the balloon. The catheter does not come out easily but it is apparent that there is some stony debris on the tip of the catheter. With gentle continuous traction I'm able to remove the catheter. The patient was reprepped and drape. A 16-Citizen Of [place] coud-tip catheter is passed into the bladder. The balloon is insufflated and then I irrigated with an [place] syringe and it irrigates freely.
--- NOTE | 2019-12-12 09:28 | XR ---
EXAMINATION TYPE: XR chest 1V portable DATE OF EXAM: 12/12/2019 COMPARISON: 12/11/2019 HISTORY: Cough possible pneumonia TECHNIQUE: Single frontal view of the chest is obtained. FINDINGS: Heart size is normal there is bilateral lower lobe infiltrate. Tiny left pleural effusion. Limited inspiration. Atherosclerotic change aorta. Arthropathy of the shoulders. IMPRESSION: Bilateral lower lobe infiltrate greater on the left and small left effusion.
[2019-12-12 10:19] LABS: African American GFR (CKD) 70.6 (60.0-200.0); BUN/Creat Ratio 48.18 Ratio (12.00-20.00); C Reactive Protein <0.4 mg/dL (0.0-0.8); Calcium 9.3 mg/dL (8.7-10.3); Carbon Dioxide 27.1 mmol/L (21.6-31.8); Chloride 106 mmol/L (96-109); Glucose 154 mg/dL (70-110); Non-African American GFR(CKD) 60.9 (60.0-200.0); Potassium 4.1 mmol/L (3.5-5.5); Sodium 142 mmol/L (135-145)
[2019-12-12] MEDS: INSULIN ASPART (NovoLOG) 100 UNIT/ML VIAL SQ SCH ×4 (10:28→21:39)
[2019-12-12] MEDS: allopurinoL 300 MG TAB PO SCH (10:44)
[2019-12-12] MEDS: TAMSULOSIN 0.4 MG CAP.ER.24H PO SCH (10:44)
[2019-12-12] MEDS: FUROSEMIDE 40 MG TAB PO SCH (10:44)
[2019-12-12] MEDS: MELOXICAM 7.5 MG TAB PO SCH (10:44)
[2019-12-12] MEDS: ARIPiprazole 5 MG TAB PO SCH (10:44)
[2019-12-12] MEDS: CARBIDOPA-LEVODOPA 25-100 MG 1 EACH TAB PO SCH ×4 (10:44→21:41)
[2019-12-12] MEDS: clonazePAM 1 MG TAB PO SCH ×4 (10:44→17:20)
[2019-12-12] MEDS: SENNOSIDES 8.6 MG TAB PO SCH (10:45)
[2019-12-12] MEDS: TIMOLOL 0.5% OPHTH DROPS 5 ML BTL BOTH EYES SCH ×2 (10:45→17:16)
[2019-12-12] MEDS: PARoxetine 10 MG TAB PO SCH (10:45)
[2019-12-12] MEDS: DORZOLAMIDE HCL 2% DROPS 10 ML BTL BOTH EYES SCH ×2 (10:46→17:16)
[2019-12-12] MEDS: BRIMONIDINE TARTRATE 0.2% DROPS 5 ML BTL BOTH EYES SCH ×2 (10:46→17:16)
[2019-12-12] MEDS: DOXYCYCLINE 100 MG in SODIUM CHLORIDE 0.9% 100 ML IVPB SCH ×2 (10:46→21:38)
[2019-12-12 11:18] LABS: Glucose,Whole Blood 161 mg/dL (75-99)
[2019-12-12] MEDS: POTASSIUM CHLORIDE ER 20 MEQ TAB.ER PO SCH (11:29)
[2019-12-12 11:48] LABS: Appearance,Urine Clear (Clear); Bacteria,Urine Occasional /hpf; Bilirubin,Urine Negative (Negative); Blood,Urine Large (Negative); Color,Urine Yellow; Glucose,Urine (UA) Negative (Negative); Ketones,Urine Negative (Negative); Leukocyte Esterase,Urine Moderate (Negative); Mucus,Urine Occasional /hpf; Nitrite,Urine Negative (Negative); PH, Urine 5.5 (5.0-8.0); Protein,Urine Trace (Negative); RBC,Urine 129 /hpf (0-5); Specific Gravity,Urine 1.019 (1.001-1.035); Urobilinogen,Urine <2.0 mg/dL (<2.0); WBC,Urine 21 /hpf (0-5)
--- NOTE | 2019-12-12 12:43 | P.PN ---
Subjective Progress Note Date: 12/12/19 HISTORY OF PRESENT ILLNESS 84-year-old male one of my office patient has been in [facility] for the last 3 years with history of advance psoriasis, history of pemphigoid with recurrent exacerbation every 2 years who has been on steroids for the last few weeks who also had significant Parkinson disease, type 2 diabetes, hypertension and hyperlipidemia. Patient developed to have worsening pemphigoid symptoms with bulla all over his body including the upper extremity, the left elbow, the sacrum area, partially is [place] as well with multiple water blister rupturing and causing secondary cellulitis. Despite being on steroid and having to do full 48 hours of Solu-Medrol injection did not help his symptoms. Patient continued to be symptomatic with fever chills worsening pain and recurrent new pemphigoid. Patient was directly to the emergency department where was seen and evaluated his white blood cell was 16,000 left shifted his bun was 57 with stage II chronic kidney disease blood sugar was mildly elevated patient was started on Solu-Medrol IV will consult dermatology and infectious disease also a Chin was started on vancomycin IV culture was done already pain management was started on Dilaudid as well along with topical care continue gentle hydration. To my surprise patient started to have mild aspiration sign with slight cough and congestion. Will start him on updraft along with O2 follow his chest x-ray from the ER showed low lung volume with no focal airspace opacity. 12/11: Patient has been seen by Dr. Arzate and sputum culture has been ordered, chest x-ray, CRP, pro-calcitonin. Wound care to the bolus lesion is dry protective dressing. Continue vancomycin and Azactam. Patient has also been seen by Dr. Pierce is nursing was unable to replace Larry catheter. This was performed by Dr. Pierce at the patient's bedside. There is also a consult in place for dermatology. Repeat blood work reveals improved leukocytosis at 11.9, hemoglobin 10.3, platelet count 203. Electrolytes normal, BUN 53 and creatinine 1.1. Blood sugars 154-161. Pro-calcitonin 0.22. C-reactive protein less than 0.4. Urinalysis clear, blood large, leukoesterase moderate, RBCs 129, wbc's 21. Repeat chest x-ray reveals bilateral lower lobe infiltrate greater on the left and small left effusion. Discharge plan will be to return to [facility]. REVIEW OF SYSTEMS CONSTITUTIONAL: Well-developed no acute respiratory distress. No documented f ever. EYES: No icterus sclerae, no conjunctivitis. EARS, NOSE, MOUTH, THROAT, and FACE: No sore throat, lymphadenopathy, carotid bruits or deformity. RESPIRATORY: Significant shortness of breath mild cough wheezes. CARDIOVASCULAR: Positive PND at 70 palpitation. GASTROINTESTINAL: No Abd pain, Nausea or vomiting, no Diarrhea or constipation, No GI Bleed, no distention or masses. GENITOURINARY: Negative for Hematuria or UTI, no kidney stones. INTEGUMENT/BREAST: Positive pemphigoid with worsening symptoms generalized muscle and joint pain as well. HEMATOLOGIC/LYMPHATIC: Negative for bleed or purpura. MUSCULOSKELTAL: Negative for Myalgia or arthralgia. NEURLOGICAL: Positive Parkinson disease mild change mental status slight confusion. BEHAVIORAL/PSYCH: Negative. ENDOCRINE: Negative. PHYSICAL EXAMINATION General Appearance: Alert, cooperative, no distress, appears stated age, resting in bed. Neck HEENT: Supple, no lymphadenopathy, no thyroid enlargement, positive slight dermatitis in the neck area. Lungs: Decreased breaths home bilaterally with fine rhonchi specially the right side has mild expiratory wheezes. Chest Wall: Decrease expansion with deep inspiration no tenderness and no deformity was found on exam, no costochondral pain or discomfort. Heart: Regular rate and rhythm, S1, S2 , positive S3 with systolic murmur. Back: Symmetric, no curvature, ROM normal, no CVA tenderness. Large spot of pemphigoid on the sacrum. Abdomen: Soft, non-tender, bowel sounds active all four quadrants, no masses, no organomegaly. Few spot of large psoriasis and abdominal area with to spot of pemphigoid as well. Extremities: Positive pemphigoid in both wrists and with large blister on the left wrist area this structure with dressing was done at the time of exam, lower extremity patient has pemphigoid on the knee especially the left compared to the right side with an area on the ankle area side by side with several smaller areas well. Pulses: 2+ and symmetric. Skin: Skin color, texture, tugor normal, no rashes or lesions. Neurologic: Alert oriented slight confusion, cranial nerves II through XII intact, positive generalized weakness positive resting tremor with typical parkinsonism. Generalized weakness bilaterally. ASSESSMENT AND PLAN 1 sepsis secondary to a combination of possible pneumonia, catheter associated urinary tract infection, severe exacerbation of bullous pemphigoid: Patient was started on Solu-Medrol 60 mg every 6 hours continue medication for now consult infectious disease and dermatology. 2 severe cellulitis on the top of pemphigoid, patient was started on Aztreonam, along with vancomycin and Doxy. Continue current management watching for final culture. 3 type 2 diabetes: Continue Accu-Chek with sliding scales coverage will hold metformin for now and might start Lantus and NovoLog before meals meals. 4 mild congestion and worsening bronchitis with possible aspiration pneumonia: Patient will remain on Vanco along with coverage for gram-negative still on updraft treatment and steroid. 5 advance Parkinson disease: Patient remain on carbidopa levodopa 25/100 mg total of 6 doses a day. Remain on medication. 6 chronic diastolic congestive heart failure: Patient remain on furosemide 40 mg daily and spironolactone. 7 hyperlipidemia: On Lipitor 10 mg daily. 8 chronic gout: Continue patient on Zyloprim 300 mg daily. 9 BPH with urinary retention: Remain on tamsulosin 0.4 mg daily. 10 chronic depression: Continue patient on. 11 DVT prophylaxis: Patient will be continue on subcu heparin. 12 GI prophylaxis: Continue pantoprazole. CODE STATUS: DO NOT RESUSCITATE. DISCHARGE PLAN Return to [facility] where he is a long-term care patient. Impression and plan of care have been directed as dictated by the signing physician. Bibi Jaquez nurse practitioner acting as scribe for signing physician. Objective - Vital Signs Vital signs: Vital Signs Temp 97.9 F 12/12/19 07:00 Pulse 68 12/12/19 07:00 Resp 20 12/12/19 07:00 BP 177/86 12/12/19 07:00 Pulse Ox 98 12/12/19 07:00 Intake & Output 12/11/19 12/12/19 12/12/19 18:59 06:59 18:59 Output Total 1650 Balance -1650 Weight 122.47 kg 122.47 kg Output: Urine 1650 Other: Voiding Method Indwelling Catheter - Labs CBC & Chem 7: 12/12/19 06:30 12/12/19 06:30 Labs: Abnormal Lab Results - Last 24 Hours (Table) 12/11/19 12/11/19 12/11/19 Range/Units 15:53 15:53 21:42 WBC 16.2 H (3.8-10.6) k/uL RBC 3.74 L (4.30-5.90) m/uL Hgb 11.4 L (13.0-17.5) gm/dL Hct 36.8 L (39.0-53.0) % MCHC (31.0-37.0) g/dL RDW 15.6 H (11.5-15.5) % Neutrophils # 14.9 H (1.3-7.7) k/uL Lymphocytes # 0.8 L (1.0-4.8) k/uL BUN 57 H (9-20) mg/dL Glucose 150 H (74-99) mg/dL POC Glucose (mg/dL) 169 H (75-99) mg/dL 12/12/19 Range/Units 06:30 WBC 11.9 H (3.8-10.6) k/uL RBC 3.40 L (4.30-5.90) m/uL Hgb 10.3 L (13.0-17.5) gm/dL Hct 33.4 L (39.0-53.0) % MCHC 30.9 L (31.0-37.0) g/dL RDW (11.5-15.5) % Neutrophils # 10.7 H (1.3-7.7) k/uL Lymphocytes # 0.9 L (1.0-4.8) k/uL BUN (9-20) mg/dL Glucose (74-99) mg/dL POC Glucose (mg/dL) (75-99) mg/dL
[2019-12-12] MEDS: MULTIVITAMINS, THERA 1 EACH TAB PO SCH (12:54)
[2019-12-12] MEDS: AZTREONAM 2 GM in SODIUM CHLORIDE 0.9% 100 ML IVPB SCH ×2 (12:55→23:22)
[2019-12-12 17:07] LABS: Glucose,Whole Blood 171 mg/dL (75-99)
[2019-12-12] MEDS: DOCUSATE 100 MG CAP PO SCH (17:15)
[2019-12-12 20:38] LABS: Glucose,Whole Blood 280 mg/dL (75-99)
[2019-12-12] MEDS: ATORVASTATIN 10 MG TAB PO SCH (21:41)
--- NOTE | 2019-12-12 23:13 | PN ---
PROGRESS NOTE DATE OF SERVICE: 12/12/2019 REASON FOR FOLLOWUP: 1. Bullous pemphigoid with a question of cellulitis. 2. Pneumonia. INTERVAL HISTORY: The patient is currently afebrile. The patient seems to be breathing more comfortably. Minimal cough. No vomiting or any diarrhea has been reported. Patient himself was unable to provide any history. PHYSICAL EXAMINATION: His blood pressure is 165/72 with a pulse of 72, temperature 98.6. He is 95% on 2 L nasal cannula. General description is an elderly male lying in bed in no distress. RESPIRATORY SYSTEM: Unlabored breathing with decreased breath sounds at the base. No wheeze. HEART: S1, S2. Regular rate and rhythm. ABDOMEN: Soft. No tenderness. LABS: Hemoglobin is 10.8, white count 11.9. Creatinine is 1.1. Urine has been positive. was elevated. DIAGNOSTIC IMPRESSION AND PLAN: 1. Patient presented to hospital with multiple bullous lesions in this patient with history of bullous pemphigoid and a concern for possible cellulitis. 2. Congested cough with evidence of pneumonia, possibly Gram-negative. Plan at this time is to continue the patient on vancomycin and Azactam because of his multiple antibiotic allergies and monitor his clinical course closely. MMODL / IJN: [id number] /
[2019-12-13] MEDS: VANCOMYCIN 1,750 MG in SODIUM CHLORIDE 0.9% 500 ML 500 ML IVPB SCH (03:39)
[2019-12-13] MEDS: LATANOPROST 0.005% OPHTH DROPS 2.5 ML BTL BOTH EYES SCH ×2 (05:33→22:24)
[2019-12-13 06:29] LABS: HCT 30.2 % (39.0-53.0); HGB 9.8 gm/dL (13.0-17.5); MCH 32.1 pg (25.0-35.0); MCHC 32.5 g/dL (31.0-37.0); MCV 98.7 fL (80.0-100.0); Macrocytosis Slight; Mean Platelet Volume 8.7; Platelet Count 170 k/uL (150-450); RBC 3.06 m/uL (4.30-5.90); RDW 15.5 % (11.5-15.5)
[2019-12-13 07:52] LABS: Glucose,Whole Blood 163 mg/dL (75-99)
[2019-12-13] MEDS: FUROSEMIDE 40 MG TAB PO SCH (08:23)
[2019-12-13] MEDS: clonazePAM 1 MG TAB PO SCH ×3 (08:23→17:30)
[2019-12-13] MEDS: MELOXICAM 7.5 MG TAB PO SCH (08:23)
[2019-12-13] MEDS: allopurinoL 300 MG TAB PO SCH (08:23)
[2019-12-13] MEDS: INSULIN ASPART (NovoLOG) 100 UNIT/ML VIAL SQ SCH ×4 (08:24→22:25)
[2019-12-13] MEDS: CARBIDOPA-LEVODOPA 25-100 MG 1 EACH TAB PO SCH ×4 (08:24→22:25)
[2019-12-13] MEDS: DORZOLAMIDE HCL 2% DROPS 10 ML BTL BOTH EYES SCH ×2 (08:24→17:31)
[2019-12-13] MEDS: methylPREDNISolone SOD SUCCI 125 MG/2 ML VIAL IV SCH ×3 (08:24→17:31)
[2019-12-13] MEDS: ARIPiprazole 5 MG TAB PO SCH (08:24)
[2019-12-13] MEDS: PARoxetine 10 MG TAB PO SCH (08:24)
[2019-12-13] MEDS: TIMOLOL 0.5% OPHTH DROPS 5 ML BTL BOTH EYES SCH ×2 (08:25→17:31)
[2019-12-13 09:13] LABS: African American GFR (CKD) 79.2 (60.0-200.0); Albumin 3.3 g/dL (3.80-4.90); Albumin/Globulin Ratio 1.74 (1.60-3.17); Anion Gap 9.3 mmol/L (4.00-12.00); Carbon Dioxide 27.7 mmol/L (21.6-31.8); Globulin 1.9 g/dL (1.6-3.3); Non-African American GFR(CKD) 68.3 (60.0-200.0); Total Bilirubin 0.3 mg/dL (0.2-1.2); Total Protein 5.2 g/dL (6.2-8.2)
--- NOTE | 2019-12-13 10:04 | P.PN ---
Subjective Progress Note Date: 12/13/19 Principal diagnosis: Sepsis, exacerbation of pemphigoid, pneumonia, UTI, mild heart failure, her consent disease, diastolic heart failure and hyperlipidemia 84-year-old male one of my office patient has been in [facility] for the last 3 years with history of advance psoriasis, history of pemphigoid with recurrent exacerbation every 2 years who has been on steroids for the last few weeks who also had significant Parkinson disease, type 2 diabetes, hypertension and hyperlipidemia. Patient developed to have worsening pemphigoid symptoms with bulla all over his body including the upper extremity, the left elbow, the sacrum area, partially is Fiona Do as well with multiple water blister rupturing and causing secondary cellulitis. Despite being on steroid and having to do full 48 hours of Solu-Medrol injection did not help his symptoms. Patient continued to be symptomatic with fever chills worsening pain and recurrent new pemphigoid. Patient was directly to the emergency department where was seen and evaluated his white blood cell was 16,000 left shifted his bun was 57 with stage II chronic kidney disease blood sugar was mildly elevated patient was started on So aracely-Medrol IV will consult dermatology and infectious disease also a Chin was started on vancomycin IV culture was done already pain management was started on Dilaudid as well along with topical care continue gentle hydration. To my surprise patient started to have mild aspiration sign with slight cough and congestion. Will start him on updraft along with O2 follow his chest x-ray from the ER showed low lung volume with no focal airspace opacity. 12/11: Patient has been seen by Dr. Arzate and sputum culture has been ordered, chest x-ray, CRP, pro-calcitonin. Wound care to the bolus lesion is dry protective dressing. Continue vancomycin and Azactam. Patient has also been seen by Dr. Pierce is nursing was unable to replace Larry catheter. This was performed by Dr. Pierce at the patient's bedside. There is also a consult in place for dermatology. Repeat blood work reveals improved leukocytosis at 11.9, hemoglobin 10.3, platelet count 203. Electrolytes normal, BUN 53 and creatinine 1.1. Blood sugars 154-161. Pro-calcitonin 0.22. C-reactive protein less than 0.4. Urinalysis clear, blood large, leukoesterase moderate, RBCs 129, wbc's 21. Repeat chest x-ray reveals bilateral lower lobe infiltrate greater on the left and small left effusion. Discharge plan will be to return to [facility]. 12/12: Patient is resting comfortably at this point his pemphigoid slightly but better on steroid and current antibiotics management and topical care. Continue to treat sepsis. His Larry catheter was difficult was changed with Dr. Agee yesterday the urine looks more clear today. Patient is tolerating vancomycin and Azactam better so far with no side effect. Objective - Vital Signs Vital signs: Vital Signs Temp 98.3 F 12/13/19 07:00 Pulse 57 L 12/13/19 07:00 Resp 20 12/13/19 07:00 BP 164/81 12/13/19 07:00 Pulse Ox 100 12/13/19 07:00 Intake & Output 12/12/19 12/13/19 12/13/19 18:59 06:59 18:59 Intake Total 800 Output Total 1000 850 Balance -1000 -50 Intake: Oral 800 Output: Urine 1000 850 Other: Voiding Method Indwelling Catheter Indwelling Catheter - Exam REVIEW OF SYSTEMS CONSTITUTIONAL: Well-developed no acute respiratory distress. No documented fever. EYES: No icterus sclerae, no conjunctivitis. EARS, NOSE, MOUTH, THROAT, and FACE: No sore throat, lymphadenopathy, carotid bruits or deformity. RESPIRATORY: Significant shortness of breath mild cough wheezes. CARDIOVASCULAR: Positive PND at 70 palpitation. GASTROINTESTINAL: No Abd pain, Nausea or vomiting, no Diarrhea or constipation, No GI Bleed, no distention or masses. GENITOURINARY: Negative for Hematuria or UTI, no kidney stones. INTEGUMENT/BREAST: Positive pemphigoid with worsening symptoms generalized muscl e and joint pain as well. HEMATOLOGIC/LYMPHATIC: Negative for bleed or purpura. MUSCULOSKELTAL: Negative for Myalgia or arthralgia. NEURLOGICAL: Positive Parkinson disease mild change mental status slight confusion. BEHAVIORAL/PSYCH: Negative. ENDOCRINE: Negative. PHYSICAL EXAMINATION General Appearance: Alert, cooperative, no distress, appears stated age, resting in bed. Neck HEENT: Supple, no lymphadenopathy, no thyroid enlargement, positive slight dermatitis in the neck area. Lungs: Decreased breaths home bilaterally with fine rhonchi specially the right side has mild expiratory wheezes. Chest Wall: Decrease expansion with deep inspiration no tenderness and no deformity was found on exam, no costochondral pain or discomfort. Heart: Regular rate and rhythm, S1, S2 , positive S3 with systolic murmur. Back: Symmetric, no curvature, ROM normal, no CVA tenderness. Large spot of pemphigoid on the sacrum. Abdomen: Soft, non-tender, bowel sounds active all four quadrants, no masses, no organomegaly. Few spot of large psoriasis and abdominal area with to spot of pemphigoid as well. Extremities: Positive pemphigoid in both wrists and with large blister on the left wrist area this structure with dressing was done at the time of exam, lower extremity patient has pemphigoid on the knee especially the left compared to the right side with an area on the ankle area side by side with several smaller areas well. Pulses: 2+ and symmetric. Skin: Skin color, texture, tugor normal, no rashes or lesions. Neurologic: Alert oriented slight confusion, cranial nerves II through XII intact, positive generalized weakness positive resting tremor with typical park insonism. Generalized weakness bilaterally. ASSESSMENT AND PLAN - Labs CBC & Chem 7: 12/13/19 06:04 12/13/19 06:04 Labs: Abnormal Lab Results - Last 24 Hours (Table) 12/12/19 12/12/19 12/12/19 Range/Units 06:30 06:30 11:14 WBC (3.8-10.6) k/uL RBC (4.30-5.90) m/uL Hgb (13.0-17.5) gm/dL Hct (39.0-53.0) % BUN 53.0 H (9.0-27.0) mg/dL BUN/Creatinine Ratio 48.18 H (12.00-20.00) Ratio Glucose 154 H (70-110) mg/dL POC Glucose (mg/dL) 161 H (75-99) mg/dL AST (14-35) U/L Total Protein (6.2-8.2) g/dL Albumin (3.80-4.90) g/dL Procalcitonin 0.22 H (0.02-0.09) ng/mL Urine Protein (Negative) Urine Blood (Negative) Ur Leukocyte Esterase (Negative) Urine RBC (0-5) /hpf Urine WBC (0-5) /hpf Urine Bacteria (None) /hpf Urine Mucus (None) /hpf 12/12/19 12/12/19 12/12/19 Range/Units 11:15 17:02 20:36 WBC (3.8-10.6) k/uL RBC (4.30-5.90) m/uL Hgb (13.0-17.5) gm/dL Hct (39.0-53.0) % BUN (9.0-27.0) mg/dL BUN/Creatinine Ratio (12.00-20.00) Ratio Glucose (70-110) mg/dL POC Glucose (mg/dL) 171 H 280 H (75-99) mg/dL AST (14-35) U/L Total Protein (6.2-8.2) g/dL Albumin (3.80-4.90) g/dL Procalcitonin (0.02-0.09) ng/mL Urine Protein Trace H (Negative) Urine Blood Large H (Negative) Ur Leukocyte Esterase Moderate H (Negative) Urine RBC 129 H (0-5) /hpf Urine WBC 21 H (0-5) /hpf Urine Bacteria Occasional H (None) /hpf Urine Mucus Occasional H (None) /hpf 12/13/19 12/13/19 12/13/19 Range/Units 06:04 06:04 07:36 WBC 11.0 H (3.8-10.6) k/uL RBC 3.06 L (4.30-5.90) m/uL Hgb 9.8 L (13.0-17.5) gm/dL Hct 30.2 L (39.0-53.0) % BUN 55.0 H (9.0-27.0) mg/dL BUN/Creatinine Ratio 55.00 H (12.00-20.00) Ratio Glucose 156 H (70-110) mg/dL POC Glucose (mg/dL) 163 H (75-99) mg/dL AST 13 L (14-35) U/L Total Protein 5.2 L (6.2-8.2) g/dL Albumin 3.30 L (3.80-4.90) g/dL Procalcitonin (0.02-0.09) ng/mL Urine Protein (Negative) Urine Blood (Negative) Ur Leukocyte Esterase (Negative) Urine RBC (0-5) /hpf Urine WBC (0-5) /hpf Urine Bacteria (None) /hpf Urine Mucus (None) /hpf Microbiology - Last 24 Hours (Table) 12/11/19 15:53 Blood Culture - Preliminary Blood No Growth after 24 hours 12/12/19 11:15 Urine Culture - Preliminary Urine,Clean Catch Assessment and Plan Plan: 1 sepsis secondary to a combination of possible pneumonia, catheter associated urinary tract infection, severe exacerbation of bullous pemphigoid: Patient was started on Solu-Medrol 60 mg every 6 hours continue medication for now consult infectious disease and dermatology. 2 severe cellulitis on the top of pemphigoid, patient was started on Aztreonam, along with vancomycin and Doxy. Continue current management watching for final culture. 3 type 2 diabetes: Continue Accu-Chek with sliding scales coverage will hold metformin for now and might start Lantus and NovoLog before meals meals. 4 mild congestion and worsening bronchitis with possible aspiration pneumonia: Patient will remain on Vanco along with coverage for gram-negative still on updraft treatment and steroid. 5 advance Parkinson disease: Patient remain on carbidopa levodopa 25/100 mg total of 6 doses a day. Remain on medication. 6 chronic diastolic congestive heart failure: Patient remain on furosemide 40 mg daily and spironolactone. 7 hyperlipidemia: On Lipitor 10 mg daily. 8 chronic gout: Continue patient on Zyloprim 300 mg daily. 9 BPH with urinary retention: Remain on tamsulosin 0.4 mg daily. 10 chronic depression: Continue patient on. 11 DVT prophylaxis: Patient will be continue on subcu heparin. 12 GI prophylaxis: Continue pantoprazole. Discharge planning: If patient is more stable on Sunday culture along with the white blood cell and aspiration pneumonia improved patient be able to go back to [facility] on tapering dose of steroid for his pemphigoid for the next 6 weeks and arrangement to see dermatology as an outpatient doesn't seem that the arm will be coming to the hospital see patient in inpatient consultation.
[2019-12-13] MEDS: DOXYCYCLINE 100 MG in SODIUM CHLORIDE 0.9% 100 ML IVPB SCH ×2 (10:50→22:24)
[2019-12-13] MEDS: BRIMONIDINE TARTRATE 0.2% DROPS 5 ML BTL BOTH EYES SCH ×2 (10:55→17:30)
[2019-12-13] MEDS: TAMSULOSIN 0.4 MG CAP.ER.24H PO SCH (10:55)
[2019-12-13] MEDS: SENNOSIDES 8.6 MG TAB PO SCH (10:55)
[2019-12-13] MEDS: MULTIVITAMINS, THERA 1 EACH TAB PO SCH (10:55)
[2019-12-13] MEDS: POTASSIUM CHLORIDE ER 20 MEQ TAB.ER PO SCH (10:55)
[2019-12-13 11:29] LABS: Glucose,Whole Blood 131 mg/dL (75-99)
[2019-12-13] MEDS: AZTREONAM 2 GM in SODIUM CHLORIDE 0.9% 100 ML IVPB SCH ×2 (12:45→23:58)
[2019-12-13 13:00] VITALS: BMI 41.0
--- NOTE | 2019-12-13 14:02 | PN ---
PROGRESS NOTE DATE OF SERVICE: 12/13/2019 REASON FOR FOLLOW UP: 1. Bullous pemphigoid superficial ulceration, question cellulitis. 2. Pneumonia. INTERVAL HISTORY: Patient is currently afebrile. The patient seemed to be slightly more weak alert. Unable to provide any history. Less congested cough. No vomiting or diarrhea has been reported. EXAMINATION: Blood pressure 134/80, with a pulse of 57, temperature 98.3, he is 100% 2 L nasal cannula. General description is an elderly male lying in bed in no distress. Respiratory system: Unlabored breathing, decreased breath sounds at bases. No wheeze. Heart S1, S2. Regular rate and rhythm. ABDOMEN: Soft, no tenderness. LABS: Hemoglobin 9.1, hematocrit 11, BUN of 55, creatinine 1.0. Urine has been negative. DIAGNOSTIC IMPRESSION AND PLAN: Patient admitted to the hospital with worsening bullous lesion in this patient who did have underlying bullous pemphigoid. Patient is also concerning for pneumonia, covered with vancomycin and Levaquin to continue and will monitor clinical course closely. Local care to continue as ordered. MMODL / IJN: [id number] /
[2019-12-13 17:17] LABS: Glucose,Whole Blood 329 mg/dL (75-99)
[2019-12-13] MEDS: DOCUSATE 100 MG CAP PO SCH (17:31)
[2019-12-13 21:13] LABS: Glucose,Whole Blood 261 mg/dL (75-99)
[2019-12-13] MEDS: ATORVASTATIN 10 MG TAB PO SCH (22:25)
[2019-12-14] MEDS: VANCOMYCIN 1,750 MG in SODIUM CHLORIDE 0.9% 500 ML 500 ML IVPB SCH (06:12)
[2019-12-14] MEDS: methylPREDNISolone SOD SUCCI 125 MG/2 ML VIAL IV SCH ×5 (06:12→23:34)
[2019-12-14 07:12] LABS: Glucose,Whole Blood 166 mg/dL (75-99)
[2019-12-14] MEDS: FUROSEMIDE 40 MG TAB PO SCH (08:40)
[2019-12-14] MEDS: MELOXICAM 7.5 MG TAB PO SCH (08:40)
[2019-12-14] MEDS: INSULIN ASPART (NovoLOG) 100 UNIT/ML VIAL SQ SCH ×5 (08:40→20:42)
[2019-12-14] MEDS: clonazePAM 1 MG TAB PO SCH ×3 (08:40→17:00)
[2019-12-14] MEDS: CARBIDOPA-LEVODOPA 25-100 MG 1 EACH TAB PO SCH ×4 (08:40→20:42)
[2019-12-14] MEDS: allopurinoL 300 MG TAB PO SCH (08:40)
[2019-12-14] MEDS: DORZOLAMIDE HCL 2% DROPS 10 ML BTL BOTH EYES SCH ×2 (08:41→17:00)
[2019-12-14] MEDS: BRIMONIDINE TARTRATE 0.2% DROPS 5 ML BTL BOTH EYES SCH ×2 (08:41→16:59)
[2019-12-14] MEDS: ARIPiprazole 5 MG TAB PO SCH (08:41)
[2019-12-14] MEDS: PARoxetine 10 MG TAB PO SCH (08:41)
[2019-12-14] MEDS: TIMOLOL 0.5% OPHTH DROPS 5 ML BTL BOTH EYES SCH ×2 (08:41→17:00)
[2019-12-14] MEDS: TAMSULOSIN 0.4 MG CAP.ER.24H PO SCH (08:56)
[2019-12-14] MEDS: POTASSIUM CHLORIDE ER 20 MEQ TAB.ER PO SCH (08:56)
[2019-12-14] MEDS: SENNOSIDES 8.6 MG TAB PO SCH (08:56)
[2019-12-14] MEDS: MULTIVITAMINS, THERA 1 EACH TAB PO SCH (08:56)
[2019-12-14 09:27] LABS: African American GFR (CKD) 70.6 (60.0-200.0); Non-African American GFR(CKD) 60.9 (60.0-200.0)
[2019-12-14] MEDS: DOXYCYCLINE 100 MG in SODIUM CHLORIDE 0.9% 100 ML IVPB SCH ×2 (10:22→20:41)
--- NOTE | 2019-12-14 10:34 | P.PN ---
Subjective Progress Note Date: 12/14/19 Principal diagnosis: Sepsis, exacerbation of pemphigoid, pneumonia, UTI, mild heart failure, her consent disease, diastolic heart failure and hyperlipidemia, memory loss. Parkinson disease 84-year-old male one of my office patient has been in [facility] for the last 3 years with history of advance psoriasis, history of pemphigoid with recurrent exacerbation every 2 years who has been on steroids for the last few weeks who also had significant Parkinson disease, type 2 diabetes, hypertension and hyperlipidemia. Patient developed to have worsening pemphigoid symptoms with bulla all over his body including the upper extremity, the left elbow, the sacrum area, partially is Fiona Do as well with multiple water blister rupturing and causing secondary cellulitis. Despite being on steroid and having to do full 48 hours of Solu-Medrol injection did not help his symptoms. Patient continued to be symptomatic with fever chills worsening pain and recurrent new pemphigoid. Patient was directly to the emergency department where was seen and evaluated his white blood cell was 16,000 left shifted his bun was 57 with stage II chronic kidney disease blood sugar was mildly elevated patient was started on Solu-Medrol IV will consult dermatology and infectious disease also a Chin was started on vancomycin IV culture was done already pain management was started on Dilaudid as well along with topical care continue gentle hydration. To my surprise patient started to have mild aspiration sign with slight cough and congestion. Will start him on updraft along with O2 follow his chest x-ray from the ER showed low lung volume with no focal airspace opacity. 12/11: Patient has been seen by Dr. Arzate and sputum culture has been ordered, chest x-ray, CRP, pro-calcitonin. Wound care to the bolus lesion is dry protective dressing. Continue vancomycin and Azactam. Patient has also been seen by Dr. Pierce is nursing was unable to replace Larry catheter. This was performed by Dr. Pierce at the patient's bedside. There is also a consult in place for dermatology. Repeat blood work reveals improved leukocytosis at 11.9, hemoglobin 10.3, platelet count 203. Electrolytes normal, BUN 53 and creatinine 1.1. Blood sugars 154-161. Pro-calcitonin 0.22. C-reactive protein less than 0.4. Urinalysis clear, blood large, leukoesterase moderate, RBCs 129, wbc's 21. Repeat chest x-ray reveals bilateral lower lobe infiltrate greater on the left and small left effusion. Discharge plan will be to return to [facility]. 12/12: Patient is resting comfortably at this point his pemphigoid slightly but better on steroid and current antibiotics management and topical care. Continue to treat sepsis. His Larry catheter was difficult was changed with Dr. Agee yesterday the urine looks more clear today. Patient is tolerating vancomycin and Azactam better so far with no side effect. 12/13: Patient is doing much better so far most of his pemphigus area are doing better the one on his left foot still have quite bit drainage from it, still on IV antibiotics, patient is doing much better able to tolerate his food diet. Hopefully will finalize his pain management pemphigoid management and antibiotics and prepare for getting him back to [facility] on Sunday. Objective - Vital Signs Vital signs: Vital Signs Temp 99.6 F 12/14/19 07:00 Pulse 55 L 12/14/19 07:00 Resp 16 12/14/19 07:00 BP 159/70 12/14/19 07:00 Pulse Ox 99 12/14/19 07:00 Intake & Output 12/13/19 12/14/19 12/14/19 18:59 06:59 18:59 Output Total 0 1600 Balance 0 -1600 Weight 122.47 kg Output: Urine 1600 Stool 0 Other: Voiding Method Indwelling Catheter Indwelling Catheter - Exam REVIEW OF SYSTEMS CONSTITUTIONAL: Well-developed no acute respiratory distress. No documented fever. EYES: No icterus sclerae, no conjunctivitis. EARS, NOSE, MOUTH, THROAT, and FACE: No sore throat, lymphadenopathy, carotid bruits or deformity. RESPIRATORY: Significant shortness of breath mild cough wheezes. CARDIOVASCULAR: Positive PND at 70 palpitation. GASTROINTESTINAL: No Abd pain, Nausea or vomiting, no Diarrhea or constipation, No GI Bleed, no distention or masses. GENITOURINARY: Negative for Hematuria or UTI, no kidney stones. INTEGUMENT/BREAST: Positive pemphigoid with worsening symptoms generalized muscle and joint pain as well. HEMATOLOGIC/LYMPHATIC: Negative for bleed or purpura. MUSCULOSKELTAL: Negative for Myalgia or arthralgia. NEURLOGICAL: Positive Parkinson disease mild change mental status slight confusi on. BEHAVIORAL/PSYCH: Negative. ENDOCRINE: Negative. PHYSICAL EXAMINATION General Appearance: Alert, cooperative, no distress, appears stated age, resting in bed. Neck HEENT: Supple, no lymphadenopathy, no thyroid enlargement, positive slight dermatitis in the neck area. Lungs: Decreased breaths home bilaterally with fine rhonchi specially the right side has mild expiratory wheezes. Chest Wall: Decrease expansion with deep inspiration no tenderness and no deform ity was found on exam, no costochondral pain or discomfort. Heart: Regular rate and rhythm, S1, S2 , positive S3 with systolic murmur. Back: Symmetric, no curvature, ROM normal, no CVA tenderness. Large spot of pemphigoid on the sacrum. Abdomen: Soft, non-tender, bowel sounds active all four quadrants, no masses, no organomegaly. Few spot of large psoriasis and abdominal area with to spot of pemphigoid as well. Extremities: Positive pemphigoid in both wrists and with large blister on the left wrist area this structure with dressing was done at the time of exam, lower extremity patient has pemphigoid on the knee especially the left compared to the right side with an area on the ankle area side by side with several smaller areas well. Pulses: 2+ and symmetric. Skin: Skin color, texture, tugor normal, no rashes or lesions. Neurologic: Alert oriented slight confusion, cranial nerves II through XII intact, positive generalized weakness positive resting tremor with typical parkinsonism. Generalized weakness bilaterally. ASSESSMENT AND PLAN - Labs CBC & Chem 7: 12/13/19 06:04 12/14/19 05:39 Labs: Abnormal Lab Results - Last 24 Hours (Table) 12/13/19 12/13/19 12/13/19 Range/Units 11:26 17:15 21:11 POC Glucose (mg/dL) 131 H 329 H 261 H (75-99) mg/dL 12/14/19 Range/Units 07:11 POC Glucose (mg/dL) 166 H (75-99) mg/dL Microbiology - Last 24 Hours (Table) 12/11/19 15:53 Blood Culture - Preliminary Blood No Growth after 48 hours 12/12/19 11:15 Urine Culture - Final Urine,Clean Catch Assessment and Plan Plan: 1 sepsis secondary to a combination of possible pneumonia, catheter associated urinary tract infection, severe exacerbation of bullous pemphigoid: Patient was started on Solu-Medrol 60 mg every 6 hours continue medication for now consult infectious disease and dermatology. 2 severe cellulitis on the top of pemphigoid, patient was started on Aztreonam, along with vancomycin and Doxy. Continue current management watching for final culture. 3 type 2 diabetes: Continue Accu-Chek with sliding scales coverage will hold metformin for now and might start Lantus and NovoLog before meals meals. 4 mild congestion and worsening bronchitis with possible aspiration pneumonia: Patient will remain on Vanco along with coverage for gram-negative still on updraft treatment and steroid. 5 advance Parkinson disease: Patient remain on carbidopa levodopa 25/100 mg tot al of 6 doses a day. Remain on medication. 6 chronic diastolic congestive heart failure: Patient remain on furosemide 40 mg daily and spironolactone. 7 hyperlipidemia: On Lipitor 10 mg daily. 8 chronic gout: Continue patient on Zyloprim 300 mg daily. 9 BPH with urinary retention: Remain on tamsulosin 0.4 mg daily. 10 chronic depression: Slightly bit better and his current medication. Further management: Patient will be started PTOT finalize his antibiotics and pemphigoid medication and treatment and prepare for game back tomorrow with the next 48 hours.
[2019-12-14 11:32] LABS: Glucose,Whole Blood 195 mg/dL (75-99)
[2019-12-14 11:40] LABS: Glucose,Whole Blood 194 mg/dL (75-99)
[2019-12-14] MEDS: AZTREONAM 2 GM in SODIUM CHLORIDE 0.9% 100 ML IVPB SCH ×2 (15:00→23:34)
[2019-12-14 16:58] LABS: Glucose,Whole Blood 170 mg/dL (75-99)
[2019-12-14] MEDS: DOCUSATE 100 MG CAP PO SCH (17:00)
[2019-12-14 20:19] LABS: Glucose,Whole Blood 247 mg/dL (75-99)
[2019-12-14] MEDS: ATORVASTATIN 10 MG TAB PO SCH (20:42)
[2019-12-14] MEDS: LATANOPROST 0.005% OPHTH DROPS 2.5 ML BTL BOTH EYES SCH (20:42)
--- NOTE | 2019-12-15 03:20 | PN ---
PROGRESS NOTE DATE OF SERVICE: 12/14/2019 REASON FOR FOLLOWUP: 1. Bilateral lower extremity wound. 2. Pneumonia. INTERVAL HISTORY: The patient is currently afebrile. The patient is hemodynamically stable, breathing comfortably. He is nonverbal, unable to provide any history. No vomiting or any diarrhea reported by the nursing staff. PHYSICAL EXAMINATION: Blood pressure 156/67 with a pulse of 54, temperature 98.6. He is 100% on 2 L nasal cannula. General description is an elderly male lying in bed in no distress. RESPIRATORY SYSTEM: Unlabored breathing, decreased breath sounds at the bases. No wheeze. HEART: S1, S2. Regular rate and rhythm. ABDOMEN: Soft. No tenderness. LABS: BUN 55, creatinine 1.0. Blood culture has been negative. DIAGNOSTIC IMPRESSION AND PLAN: 1. Patient with bilateral lower extremity wound from a ruptured bullae from his bullous pemphigoid and concern for possible cellulitis. 2. Possible pneumonia. Patient to continue with Azactam and vancomycin because of his allergies and monitor his clinical course closely. MMODL / IJN: [id number] /
[2019-12-15 07:07] LABS: Glucose,Whole Blood 153 mg/dL (75-99)
[2019-12-15] MEDS: methylPREDNISolone SOD SUCCI 125 MG/2 ML VIAL IV SCH (07:07)
[2019-12-15] MEDS: VANCOMYCIN 1,750 MG in SODIUM CHLORIDE 0.9% 500 ML 500 ML IVPB SCH (07:07)
[2019-12-15 07:24] LABS: Basophils % (A) 0 %; Eosinophils % (A) 0 %; HGB 10.6 gm/dL (13.0-17.5); Lymphocytes # (A) 0.7 k/uL (1.0-4.8); Lymphocytes % (A) 6 %; MCH 30.5 pg (25.0-35.0); MCHC 31.1 g/dL (31.0-37.0); MCV 98.2 fL (80.0-100.0); Mean Platelet Volume 8.9; Monocytes # (A) 0.3 k/uL (0-1.0); Monocytes % (A) 2 %; Neutrophils # (A) 11.2 k/uL (1.3-7.7); Neutrophils % (A) 92 %; Platelet Count 157 k/uL (150-450); RBC 3.46 m/uL (4.30-5.90); WBC 12.3 k/uL (3.8-10.6)
[2019-12-15] MEDS: SENNOSIDES 8.6 MG TAB PO SCH (07:26)
[2019-12-15] MEDS: POTASSIUM CHLORIDE ER 20 MEQ TAB.ER PO SCH (07:26)
[2019-12-15] MEDS: allopurinoL 300 MG TAB PO SCH (07:26)
[2019-12-15] MEDS: CARBIDOPA-LEVODOPA 25-100 MG 1 EACH TAB PO SCH ×4 (07:26→20:11)
[2019-12-15] MEDS: MELOXICAM 7.5 MG TAB PO SCH (07:26)
[2019-12-15] MEDS: INSULIN ASPART (NovoLOG) 100 UNIT/ML VIAL SQ SCH ×4 (07:26→21:06)
[2019-12-15] MEDS: TAMSULOSIN 0.4 MG CAP.ER.24H PO SCH (07:26)
[2019-12-15] MEDS: clonazePAM 1 MG TAB PO SCH ×3 (07:26→17:11)
[2019-12-15] MEDS: FUROSEMIDE 40 MG TAB PO SCH (07:26)
[2019-12-15] MEDS: PARoxetine 10 MG TAB PO SCH (07:27)
[2019-12-15] MEDS: ARIPiprazole 5 MG TAB PO SCH (07:27)
[2019-12-15] MEDS: BRIMONIDINE TARTRATE 0.2% DROPS 5 ML BTL BOTH EYES SCH ×2 (07:33→17:12)
[2019-12-15] MEDS: TIMOLOL 0.5% OPHTH DROPS 5 ML BTL BOTH EYES SCH ×2 (07:33→17:12)
[2019-12-15] MEDS: DORZOLAMIDE HCL 2% DROPS 10 ML BTL BOTH EYES SCH ×2 (07:33→17:11)
[2019-12-15] MEDS: DOXYCYCLINE 100 MG in SODIUM CHLORIDE 0.9% 100 ML IVPB SCH ×2 (09:28→20:11)
--- NOTE | 2019-12-15 11:14 | P.PN ---
Subjective Progress Note Date: 12/15/19 HISTORY OF PRESENT ILLNESS 84-year-old male one of my office patient has been in [facility] for the last 3 years with history of advance psoriasis, history of pemphigoid with recurrent exacerbation every 2 years who has been on steroids for the last few weeks who also had significant Parkinson disease, type 2 diabetes, hypertension and hyperlipidemia. Patient developed to have worsening pemphigoid symptoms with bulla all over his body including the upper extremity, the left elbow, the sacrum area, partially is Fiona Do as well with multiple water blister rupturing and causing secondary cellulitis. Despite being on steroid and having to do full 48 hours of Solu-Medrol injection did not help his symptoms. Patient continued to be symptomatic with fever chills worsening pain and recurrent new pemphigoid. Patient was directly to the emergency department where was seen and evaluated his white blood cell was 16,000 left shifted his bun was 57 with stage II chronic kidney disease blood sugar was mildly elevated patient was started on Solu-Medrol IV will consult dermatology and infectious disease also a Chin was started on vancomycin IV culture was done already pain management was started on Dilaudid as well along with topical care continue gentle hydration. To my surprise patient started to have mild aspiration sign with slight cough and congestion. Will start him on updraft along with O2 follow his chest x-ray from the ER showed low lung volume with no focal airspace opacity. 12/11: Patient has been seen by Dr. Arzate and sputum culture has been ordered, chest x-ray, CRP, pro-calcitonin. Wound care to the bolus lesion is dry protective dressing. Continue vancomycin and Azactam. Patient has also been seen by Dr. Pierce is nursing was unable to replace Larry catheter. This was performed by Dr. Pierce at the patient's bedside. There is also a consult in place for dermatology. Repeat blood work reveals improved leukocytosis at 11.9, hemoglobin 10.3, platelet count 203. Electrolytes normal, BUN 53 and creatinine 1.1. Blood sugars 154-161. Pro-calcitonin 0.22. C-reactive protein less than 0.4. Urinalysis clear, blood large, leukoesterase moderate, RBCs 129, wbc's 21. Repeat chest x-ray reveals bilateral lower lobe infiltrate greater on the left and small left effusion. Discharge plan will be to return to [facility]. 12/12: Patient is resting comfortably at this point his pemphigoid slightly but better on steroid and current antibiotics management and topical care. Continue to treat sepsis. His Larry catheter was difficult was changed with Dr. Agee yesterday the urine looks more clear today. Patient is tolerating vancomycin and Azactam better so far with no side effect. 12/13: Patient is doing much better so far most of his pemphigus area are doing better the one on his left foot still have quite bit drainage from it, still on IV antibiotics, patient is doing much better able to tolerate his food diet. Hopefully will finalize his pain management pemphigoid management and antibiotics and prepare for getting him back to [facility] on Sunday. 12/14: Patient is currently on vancomycin and Levaquin management by Dr. Arzate. IV Solu-Medrol will be transitioned to oral prednisone today. Will need clarification from Dr. Arzate for discharge antibiotics as discharge is anticipated tomorrow. The patient appears more anxious today. Urine culture has finalize with no growth after 18 hours. Blood cultures no growth after 72 hours. REVIEW OF SYSTEMS CONSTITUTIONAL: Well-developed no acute respiratory distress. No documented fever. EYES: No icterus sclerae, no conjunctivitis. EARS, NOSE, MOUTH, THROAT, and FACE: No sore throat, lymphadenopathy, carotid bruits or deformity. RESPIRATORY: Significant shortness of breath mild cough wheezes. CARDIOVASCULAR: Positive PND at 70 palpitation. GASTROINTESTINAL: No Abd pain, Nausea or vomiting, no Diarrhea or constipation, No GI Bleed, no distention or masses. GENITOURINARY: Negative for Hematuria or UTI, no kidney stones. INTEGUMENT/BREAST: Positive pemphigoid with worsening symptoms generalized muscle and joint pain as well. HEMATOLOGIC/LYMPHATIC: Negative for bleed or purpura. MUSCULOSKELTAL: Negative for Myalgia or arthralgia. NEURLOGICAL: Positive Parkinson disease mild change mental status slight confusion. BEHAVIORAL/PSYCH: Negative. ENDOCRINE: Negative. PHYSICAL EXAMINATION General Appearance: Alert, cooperative, no distress, appears stated age, resting in bed. Patient appears anxious. Neck HEENT: Supple, no lymphadenopathy, no thyroid enlargement, positive slight dermatitis in the neck area. Lungs: Decreased breaths home bilaterally with fine rhonchi specially the right side has mild expiratory wheezes. Chest Wall: Decrease expansion with deep inspiration no tenderness and no deformity was found on exam, no costochondral pain or discomfort. Heart: Regular rate and rhythm, S1, S2 , positive S3 with systolic murmur. Back: Symmetric, no curvature, ROM normal, no CVA tenderness. Large spot of pemphigoid on the sacrum. Abdomen: Soft, non-tender, bowel sounds active all four quadrants, no masses, no organomegaly. Few spot of large psoriasis and abdominal area with to spot of pemphigoid as well. Extremities: Positive pemphigoid in both wrists and with large blister on the left wrist area this structure with dressing was done at the time of exam, lower extremity patient has pemphigoid on the knee especially the left compared to the right side with an area on the ankle area side by side with several smaller areas well. Pulses: 2+ and symmetric. Skin: Skin color, texture, tugor normal, no rashes or lesions. Neurologic: Alert oriented slight confusion, cranial nerves II through XII intact, positive generalized weakness positive resting tremor with typical parkinsonism. Generalized weakness bilaterally. ASSESSMENT AND PLAN 1 sepsis secondary to a combination of possible pneumonia, severe exacerbation of bullous pemphigoid: IV Solu-Medrol to be transitioned to oral prednisone. Consult with infectious disease appreciated. Consult with dermatology pending. (Catheter associated urinary tract infection--ruled out) 2 severe cellulitis on the top of pemphigoid, patient was started on Aztreonam, along with vancomycin and Doxy. Continue current management watching for final culture. 3 type 2 diabetes: Continue Accu-Chek with sliding scales coverage will hold metformin for now and might start Lantus and NovoLog before meals meals. 4 mild congestion and worsening bronchitis with possible aspiration pneumonia: Patient will remain on Vanco along with coverage for gram-negative still on updraft treatment and steroid. 5 advance Parkinson disease: Patient remain on carbidopa levodopa 25/100 mg total of 6 doses a day. Remain on medication. 6 chronic diastolic congestive heart failure: Patient remain on furosemide 40 mg daily and spironolactone. 7 hyperlipidemia: On Lipitor 10 mg daily. 8 chronic gout: Continue patient on Zyloprim 300 mg daily. 9 BPH with urinary retention: Remain on tamsulosin 0.4 mg daily. 10 chronic depression: Continue patient on. 11 DVT prophylaxis: Patient will be continue on subcu heparin. 12 GI prophylaxis: Continue pantoprazole. CODE STATUS: DO NOT RESUSCITATE. DISCHARGE PLAN Return to [facility] on Sunday. Impression and plan of care have been directed as dictated by the signing physician. Bibi Jaquez nurse practitioner acting as scribe for signing physician. Objective - Vital Signs Vital signs: Vital Signs Temp 97.8 F 12/15/19 07:00 Pulse 51 L 12/15/19 07:00 Resp 20 12/15/19 07:00 BP 187/79 12/15/19 07:00 Pulse Ox 99 12/15/19 07:00 Intake & Output 12/14/19 12/15/19 12/15/19 18:59 06:59 18:59 Intake Total 0 Output Total 0 1100 Balance 0 -1100 Weight 90.5 kg Intake: Oral 0 Output: Urine 1100 Stool 0 Other: Voiding Method Indwelling Catheter Indwelling Catheter # Bowel Movements 0 - Labs CBC & Chem 7: 12/15/19 06:53 12/14/19 05:39 Labs: Abnormal Lab Results - Last 24 Hours (Table) 12/14/19 12/14/19 12/14/19 Range/Units 11:31 11:37 16:52 WBC (3.8-10.6) k/uL RBC (4.30-5.90) m/uL Hgb (13.0-17.5) gm/dL Hct (39.0-53.0) % Neutrophils # (1.3-7.7) k/uL Lymphocytes # (1.0-4.8) k/uL POC Glucose (mg/dL) 195 H 194 H 170 H (75-99) mg/dL 12/14/19 12/15/19 12/15/19 Range/Units 20:08 06:53 07:02 WBC 12.3 H (3.8-10.6) k/uL RBC 3.46 L (4.30-5.90) m/uL Hgb 10.6 L (13.0-17.5) gm/dL Hct 34.0 L (39.0-53.0) % Neutrophils # 11.2 H (1.3-7.7) k/uL Lymphocytes # 0.7 L (1.0-4.8) k/uL POC Glucose (mg/dL) 247 H 153 H (75-99) mg/dL Microbiology - Last 24 Hours (Table) 12/11/19 15:53 Blood Culture - Preliminary Blood No Growth after 72 hours
[2019-12-15 11:24] LABS: Glucose,Whole Blood 258 mg/dL (75-99)
[2019-12-15 12:03] LABS: African American GFR (CKD) 89.9 (60.0-200.0); Albumin 3.1 g/dL (3.80-4.90); Albumin/Globulin Ratio 1.63 (1.60-3.17); Anion Gap 8.4 mmol/L (4.00-12.00); BUN/Creat Ratio 67.78 Ratio (12.00-20.00); Carbon Dioxide 24.6 mmol/L (21.6-31.8); Globulin 1.9 g/dL (1.6-3.3); Non-African American GFR(CKD) 77.6 (60.0-200.0); Potassium 4.3 mmol/L (3.5-5.5); Total Bilirubin 0.2 mg/dL (0.3-1.2)
[2019-12-15] MEDS: AZTREONAM 2 GM in SODIUM CHLORIDE 0.9% 100 ML IVPB SCH ×2 (12:21→20:12)
[2019-12-15] MEDS: MULTIVITAMINS, THERA 1 EACH TAB PO SCH (12:21)
[2019-12-15] MEDS: predniSONE 20 MG TAB PO SCH (12:21)
[2019-12-15 16:21] LABS: Glucose,Whole Blood 216 mg/dL (75-99)
[2019-12-15] MEDS: DOCUSATE 100 MG CAP PO SCH (17:11)
[2019-12-15] MEDS: ATORVASTATIN 10 MG TAB PO SCH (20:11)
[2019-12-15] MEDS: LATANOPROST 0.005% OPHTH DROPS 2.5 ML BTL BOTH EYES SCH (20:12)
[2019-12-15 20:21] LABS: Glucose,Whole Blood 233 mg/dL (75-99)
[2019-12-15 20:56] LABS: Glucose,Whole Blood 245 mg/dL (75-99)
--- NOTE | 2019-12-16 01:37 | PN ---
PROGRESS NOTE DATE OF SERVICE: 12/15/2019 REASON FOR FOLLOWUP: 1. Upper and lower extremity bullous lesion and concern for cellulitis. 2. Pneumonia. INTERVAL HISTORY: The patient is currently afebrile. The patient seemed to be more awake and alert today, however, he is very hard of hearing and does not provide any reliable history. No vomiting, no diarrhea or any changes reported by the nursing staff. PHYSICAL EXAMINATION: Blood pressure is 148/66, pulse of 64, temperature 98.3. He is 93% on 2 L nasal cannula. General description is an elderly male lying in bed in no distress. RESPIRATORY SYSTEM: Unlabored breathing, decreased breath sounds in the bases, no wheeze. HEART: S1, S2. Regular rate and rhythm. ABDOMEN: Soft, no tenderness. Wounds are currently dressed up. No obvious drainage on the dressing. LABS: Hemoglobin is 10.6, white count 12.3. DIAGNOSTIC IMPRESSION AND PLAN: Patient admitted to the hospital with bullous lesion. This patient did have a history of bullous pemphigoid with concern for possible cellulitis and also question of pneumonia. The patient is covered with Azactam and vancomycin because of his allergies. We will repeat a chest x-ray tomorrow and if overall improvement in pneumonia component may discharge him back to [facility] on oral Avelox 400 daily for about a week. Continue with supportive care. MMODL / IJN: [id number] /
[2019-12-16] MEDS ORDERED: VANCOMYCIN TROUGH DUE 1 EACH MISC MISCELLANE ONE (05:00)
[2019-12-16 05:42] LABS: Basophils % (A) 0 %; Eosinophils % (A) 0 %; HCT 36.3 % (39.0-53.0); HGB 11.6 gm/dL (13.0-17.5); Lymphocytes % (A) 7 %; MCH 31.2 pg (25.0-35.0); MCHC 31.8 g/dL (31.0-37.0); Mean Platelet Volume 8.9; Monocytes # (A) 0.7 k/uL (0-1.0); Monocytes % (A) 5 %; Neutrophils # (A) 11.8 k/uL (1.3-7.7); Neutrophils % (A) 87 %; Platelet Count 163 k/uL (150-450); RBC 3.71 m/uL (4.30-5.90); RDW 15.1 % (11.5-15.5); WBC 13.7 k/uL (3.8-10.6)
[2019-12-16] MEDS: VANCOMYCIN 1,750 MG in SODIUM CHLORIDE 0.9% 500 ML 500 ML IVPB SCH (06:10)
[2019-12-16 07:28] LABS: Glucose,Whole Blood 63 mg/dL (75-99)
[2019-12-16] MEDS: INSULIN ASPART (NovoLOG) 100 UNIT/ML VIAL SQ SCH ×2 (07:28→12:20)
[2019-12-16 07:35] VITALS: RESP 20; TEMP 97.5
[2019-12-16] MEDS: TAMSULOSIN 0.4 MG CAP.ER.24H PO SCH (07:39)
[2019-12-16] MEDS: predniSONE 20 MG TAB PO SCH (07:39)
[2019-12-16] MEDS: CARBIDOPA-LEVODOPA 25-100 MG 1 EACH TAB PO SCH ×2 (07:39→12:20)
[2019-12-16] MEDS: POTASSIUM CHLORIDE ER 20 MEQ TAB.ER PO SCH (07:39)
[2019-12-16] MEDS: allopurinoL 300 MG TAB PO SCH (07:39)
[2019-12-16] MEDS: SENNOSIDES 8.6 MG TAB PO SCH (07:39)
[2019-12-16] MEDS: PARoxetine 10 MG TAB PO SCH (07:40)
[2019-12-16] MEDS: ARIPiprazole 5 MG TAB PO SCH (07:40)
[2019-12-16] MEDS: clonazePAM 1 MG TAB PO SCH ×2 (07:40→12:20)
[2019-12-16] MEDS: FUROSEMIDE 40 MG TAB PO SCH (07:40)
[2019-12-16] MEDS: MELOXICAM 7.5 MG TAB PO SCH (07:40)
[2019-12-16 07:44] LABS: Glucose,Whole Blood 111 mg/dL (75-99)
[2019-12-16] MEDS: DORZOLAMIDE HCL 2% DROPS 10 ML BTL BOTH EYES SCH (07:47)
[2019-12-16] MEDS: BRIMONIDINE TARTRATE 0.2% DROPS 5 ML BTL BOTH EYES SCH (07:47)
[2019-12-16] MEDS: TIMOLOL 0.5% OPHTH DROPS 5 ML BTL BOTH EYES SCH (07:48)
--- NOTE | 2019-12-16 08:20 | P.DS ---
Providers Date of admission: 12/11/19 17:05 Expected date of discharge: 12/16/19 Attending physician: Shiva Storm Consults: 12/11/19 17:30 Consult Physician Stat Consulting Provider: Marin Vázquez Consult Reason/Comments: BULLOUS PEMPHIGOID Do you want consulting provider notified?: Yes Consult Physician Stat Consulting Provider: Charlene Arzate Consult Reason/Comments: BULLOUS PEMPHIGOID Do you want consulting provider notified?: Yes 12/11/19 23:29 Consult Physician Routine Consulting Provider: Andry Pierce Consult Reason/Comments: Unable to pull chronic mandujano Do you want consulting provider notified?: Yes, Notify in am Primary care physician: [facility] Course: HISTORY OF PRESENT ILLNESS 84-year-old male one of my office patient has been in [facility] for the last 3 years with history of advance psoriasis, history of pemphigoid with recurrent exacerbation every 2 years who has been on steroids for the last few weeks who also had significant Parkinson disease, type 2 diabetes, hypertension and hyperlipidemia. Patient developed to have worsening pemphigoid symptoms with bulla all over his body including the upper extremity, the left elbow, the sacrum area, partially is Fiona Do as well with multiple water blister rupturing and causing secondary cellulitis. Despite being on steroid and having to do full 48 hours of Solu-Medrol injection did not help his symptoms. Patient continued to be symptomatic with fever chills worsening pain and recurrent new pemphigoid. Patient was directly to the emergency department where was seen and evaluated his white blood cell was 16,000 left shifted his bun was 57 with stage II chronic kidney disease blood sugar was mildly elevated patient was started on Solu-Medrol IV will consult dermatology and infectious disease also a Chin was started on vancomycin IV culture was done already pain management was started on Dilaudid as well along with topical care continue gentle hydration. To my surprise patient started to have mild aspiration sign with slight cough and congestion. Will start him on updraft along with O2 follow his chest x-ray from the ER showed low lung volume with no focal airspace opacity. 12/11: Patient has been seen by Dr. Arzate and sputum culture has been ordered, chest x-ray, CRP, pro-calcitonin. Wound care to the bolus lesion is dry protective dressing. Continue vancomycin and Azactam. Patient has also been seen by Dr. Pierce is nursing was unable to replace Mandujano catheter. This was performed by Dr. Pierce at the patient's bedside. There is also a consult in place for dermatology. Repeat blood work reveals improved leukocytosis at 11.9, hemoglobin 10.3, platelet count 203. Electrolytes normal, BUN 53 and creatinine 1.1. Blood sugars 154-161. Pro-calcitonin 0.22. C-reactive protein less than 0.4. Urinalysis clear, blood large, leukoesterase moderate, RBCs 129, wbc's 21. Repeat chest x-ray reveals bilateral lower lobe infiltrate greater on the left and small left effusion. Discharge plan will be to return to [facility]. 12/12: Patient is resting comfortably at this point his pemphigoid slightly but better on steroid and current antibiotics management and topical care. Continue to treat sepsis. His Mandujano catheter was difficult was changed with Dr. Agee yesterday the urine looks more clear today. Patient is tolerating vancomycin and Azactam better so far with no side effect. 12/13: Patient is doing much better so far most of his pemphigus area are doing better the one on his left foot still have quite bit drainage from it, still on IV antibiotics, patient is doing much better able to tolerate his food diet. Hopefully will finalize his pain management pemphigoid management and antibiotics and prepare for getting him back to [facility] on Sunday. 12/14: Patient is currently on vancomycin and Levaquin management by Dr. Arzate. IV Solu-Medrol will be transitioned to oral prednisone today. Will need clarification from Dr. Arzate for discharge antibiotics as discharge is anticipated tomorrow. The patient appears more anxious today. Urine culture has finalize with no growth after 18 hours. Blood cultures no growth after 72 hours. 12/15: No new concerns overnight. Patient is currently on Azactam, doxycycline and vancomycin. Dr. Arzate has recommended Avelox for 7 days for discharge. Patient has been afebrile, heart rate 70, blood pressure 151/66, pulse ox 99% on 2 L nasal cannula. Repeat blood work reveals Pepper BC 13.7, hemoglobin 11.7, platelet count 163. Electrolytes normal. BUN 62 and creatinine 0.9. Blood sugars running between 63 and 245. Patient will be discharged back to [facility] today in stable condition. ASSESSMENT AND PLAN 1 sepsis secondary to a combination of possible pneumonia, severe exacerbation of bullous pemphigoid (Catheter associated urinary tract infection--ruled out) 2 severe cellulitis on the top of pemphigoid 3 type 2 diabetes 4 mild congestion and worsening bronchitis with possible aspiration pneumonia 5 advance Parkinson disease 6 chronic diastolic congestive heart failure 7 hyperlipidemia 8 chronic gout 9 BPH with urinary retention 10 recurrent depression DISCHARGE PLAN Return to [facility] Impression and plan of care have been directed as dictated by the signing physician. Bibi Jaquez nurse practitioner acting as scribe for signing physician. Patient Condition at Discharge: Good Plan - Discharge Summary Discharge Rx Participant: No New Discharge Prescriptions: New Moxifloxacin HCl [Avelox] 400 mg PO DAILY #7 tablet No Action Multivitamin [Men's Multi-Vitamin] 1 tab PO DAILY@1200 Sennosides [Senna] 8.6 mg PO DAILY@0800 Atorvastatin [Lipitor] 10 mg PO HS@2100 Allopurinol [Zyloprim] 300 mg PO DAILY@0800 Nabumetone 1,000 mg PO BID@0800,1700 metFORMIN HCL [Glucophage] 500 mg PO BID@0800,1700 Potassium Chloride [Klor-Con 20] 20 meq PO DAILY@0800 Carbidopa-Levodopa 25-100 mg [Sinemet 25-100 mg] 2 tab PO BID@0800,1700 Tamsulosin HCl [Flomax] 0.4 mg PO DAILY@0800 Carbidopa-Levodopa 25-100 mg [Sinemet 25-100 mg] 1 tab PO BID@1200,2100 Magnesium Hydroxide [Milk of Magnesia Concentrate] 7,200 mg PO DAILY PRN PRN Reason: Constipation Na Phos,M-B/Na Phos,Di-Ba [Fleet Adult] 133 ml RECTAL DAILY PRN PRN Reason: Constipation bisacodyL [Dulcolax] 10 mg RECTAL DAILY PRN PRN Reason: Constipation Acetaminophen [Tylenol] 650 mg PO Q4H PRN PRN Reason: Fever And/ Or Pain Lactulose [Cephulac] 30 gm PO DAILY PRN PRN Reason: Constipation Latanoprost/Pf [Latanoprost 0.005% Eye Drop] 1 drop BOTH EYES HS@2100 Acetaminophen-Codeine 300-30mg [Tylenol w/codeine #3] 1 tab PO Q8H PRN #9 tab PRN Reason: Pain Insulin Aspart See Protocol SQ ACHS@07,11,1630,2130 clonazePAM 1 mg PO TID@0800,1200,1700 Dorzolamide HCl [Trusopt 2%] 1 drop BOTH EYES BID@0800,1700 Brimonidine Tartrate/Timolol [Combigan 0.2%-0.5% Eye Drops] 1 drop BOTH EYES BID@0800,1700 predniSONE 30 mg PO DAILY predniSONE [Deltasone] 40 mg PO DAILY@0800 PARoxetine [Paxil] 10 mg PO DAILY@0800 Furosemide [Lasix] 40 mg PO DAILY@0800 Furosemide [Lasix] 40 mg PO Q48H Docusate [Colace] 100 mg PO DAILY@1700 ARIPiprazole [Abilify] 5 mg PO DAILY@0800 Loperamide HCl [Imodium A-D] 4 mg PO DAILY PRN MDD 4 tabs/24hr PRN Reason: Diarrhea Discharge Medication List Multivitamin [Men's Multi-Vitamin] 1 tab PO DAILY@1200 03/04/16 [History] Allopurinol [Zyloprim] 300 mg PO DAILY@0800 01/07/18 [History] Atorvastatin [Lipitor] 10 mg PO HS@209901/07/18 [History] Carbidopa-Levodopa 25-100 mg [Sinemet 25-100 mg] 1 tab PO BID@1200,2100 01/07/18 [History] Carbidopa-Levodopa 25-100 mg [Sinemet 25-100 mg] 2 tab PO BID@0800,1700 01/07/18 [History] Nabumetone 1,000 mg PO BID@0800,1700 01/07/18 [History] Potassium Chloride [Klor-Con 20] 20 meq PO DAILY@0800 01/07/18 [History] Sennosides [Senna] 8.6 mg PO DAILY@0800 01/07/18 [History] Tamsulosin HCl [Flomax] 0.4 mg PO DAILY@0800 01/07/18 [History] metFORMIN HCL [Glucophage] 500 mg PO BID@0800,1700 01/07/18 [History] Acetaminophen [Tylenol] 650 mg PO Q4H PRN 05/20/18 [History] Lactulose [Cephulac] 30 gm PO DAILY PRN 05/20/18 [History] Latanoprost/Pf [Latanoprost 0.005% Eye Drop] 1 drop BOTH EYES HS@2100 05/20/18 [History] Magnesium Hydroxide [Milk of Magnesia Concentrate] 7,200 mg PO DAILY PRN 05/20/18 [History] Na Phos,M-B/Na Phos,Di-Ba [Fleet Adult] 133 ml RECTAL DAILY PRN 05/20/18 [History] bisacodyL [Dulcolax] 10 mg RECTAL DAILY PRN 05/20/18 [History] Acetaminophen-Codeine 300-30mg [Tylenol w/codeine #3] 1 tab PO Q8H PRN #9 tab 05/23/18 [Rx] ARIPiprazole [Abilify] 5 mg PO DAILY@0800 12/11/19 [History] Brimonidine Tartrate/Timolol [Combigan 0.2%-0.5% Eye Drops] 1 drop BOTH EYES BID@0800,1700 12/11/19 [History] Docusate [Colace] 100 mg PO DAILY@1700 12/11/19 [History] Dorzolamide HCl [Trusopt 2%] 1 drop BOTH EYES BID@0800,1700 12/11/19 [History] Furosemide [Lasix] 40 mg PO DAILY@0800 12/11/19 [History] Furosemide [Lasix] 40 mg PO Q48H 12/11/19 [History] Insulin Aspart See Protocol SQ ACHS@07,11,1630,2130 12/11/19 [History] Loperamide HCl [Imodium A-D] 4 mg PO DAILY PRN MDD 4 tabs/24hr 12/11/19 [History] PARoxetine [Paxil] 10 mg PO DAILY@0800 12/11/19 [History] clonazePAM 1 mg PO TID@0800,1200,1700 12/11/19 [History] predniSONE 30 mg PO DAILY 12/11/19 [History] predniSONE [Deltasone] 40 mg PO DAILY@0800 12/11/19 [History] Moxifloxacin HCl [Avelox] 400 mg PO DAILY #7 tablet 12/16/19 [Rx] Follow up Appointment(s)/Referral(s): Shiva Storm MD [Primary Care Provider] - 1 Week (at [facility]) Discharge Disposition: TRANSFER TO SNF/ECF
[2019-12-16 08:47] VITALS: BP 151/66; PULSE 70
[2019-12-16 09:13] LABS: African American GFR (CKD) 89.9 (60.0-200.0); Anion Gap 8.9 mmol/L (4.00-12.00); BUN/Creat Ratio 68.89 Ratio (12.00-20.00); Carbon Dioxide 24.1 mmol/L (21.6-31.8); Non-African American GFR(CKD) 77.6 (60.0-200.0); Potassium 4.2 mmol/L (3.5-5.5)
--- NOTE | 2019-12-16 09:13 | XR ---
EXAMINATION TYPE: XR chest 1V portable DATE OF EXAM: 12/16/2019 CLINICAL HISTORY: Pneumonia TECHNIQUE: Portable upright view of the chest COMPARISON: 12/12/2019 FINDINGS: The cardiomediastinal silhouette is within normal limits for size. Pulmonary vasculature i s normal. Atelectasis at the left lung base. Decrease of small left pleural effusion. No pneumothorax . Degenerative change of the right shoulder. IMPRESSION: Left basilar atelectasis. Decreased small left pleural effusion.
[2019-12-16] MEDS: DOXYCYCLINE 100 MG in SODIUM CHLORIDE 0.9% 100 ML IVPB SCH (10:09)
--- NOTE | 2019-12-16 11:33 | PN ---
PROGRESS NOTE DATE OF SERVICE: 12/16/2019 REASON FOR FOLLOWUP: Wound Cellulitis and pneumonia. INTERVAL HISTORY: The patient was seen on rounds this morning. The patient is afebrile, he is breathing comfortably, currently on 2 L nasal cannula. No vomiting or diarrhea on other changes noted by the nursing staff. PHYSICAL EXAMINATION: Blood pressure 151/66, pulse of 78, temperature 97.5. He is 99% on 2 L. General description is an elderly male lying in bed, in no distress. RESPIRATORY SYSTEM: Unlabored breathing, decreased breath sounds at the base. No wheeze. HEART: S1, S2. Regular rate and rhythm. ABDOMEN: Soft, no tenderness. LABS: Chest x-ray ordered from this morning not done yet. DIAGNOSTIC IMPRESSION AND PLAN: Patient with bullous pemphigoid with superficial wound culture for cellulitis and pneumonia, overall clinical improvement. Finish therapy with oral Avelox 400 daily for about a week and close outpatient followup. MMODL / IJN: [id number] /
[2019-12-16 12:05] LABS: Glucose,Whole Blood 170 mg/dL (75-99)
[2019-12-16] MEDS: MULTIVITAMINS, THERA 1 EACH TAB PO SCH (12:20)
[2019-12-16] MEDS: AZTREONAM 2 GM in SODIUM CHLORIDE 0.9% 100 ML IVPB SCH (12:20)
== END 2019-12-16 14:31 | DRG 871 ==
LOC: EC 14:59 → 4SSUR 17:05
PROVIDERS: ADMIT Internal Medicine Geriatric Medicine; ATTEND Internal Medicine Geriatric Medicine
PROC: 0TPB70Z Removal of Drainage Device from Bladder, Via Natural or Artificial Opening (ICD-10-PCS; principal; 2019-12-12)
PROC: 0T9B70Z Drainage of Bladder with Drainage Device, Via Natural or Artificial Opening (ICD-10-PCS; principal; 2019-12-12)
DX: A41.9 Sepsis, unspecified organism (principal); J69.0 Pneumonitis due to inhalation of food and vomit; J15.6 Pneumonia due to other Gram-negative bacteria; F33.9 Major depressive disorder, recurrent, unspecified; I13.0 Hypertensive heart and chronic kidney disease with heart failure and stage 1 through stage 4 chronic kidney disease, or unspecified chronic kidney disease; I50.32 Chronic diastolic (congestive) heart failure; L12.0 Bullous pemphigoid; L03.114 Cellulitis of left upper limb; L03.113 Cellulitis of right upper limb; L03.116 Cellulitis of left lower limb; L03.115 Cellulitis of right lower limb; L97.929 Non-pressure chronic ulcer of unspecified part of left lower leg with unspecified severity; L97.919 Non-pressure chronic ulcer of unspecified part of right lower leg with unspecified severity; E11.22 Type 2 diabetes mellitus with diabetic chronic kidney disease; F02.80 Dementia in other diseases classified elsewhere, unspecified severity, without behavioral disturbance, psychotic disturbance, mood disturbance, and anxiety; G20 Parkinson's disease; Z20.828 Contact with and (suspected) exposure to other viral communicable diseases; T83.091A Other mechanical complication of indwelling urethral catheter, initial encounter; L98.499 Non-pressure chronic ulcer of skin of other sites with unspecified severity; E78.5 Hyperlipidemia, unspecified; F41.9 Anxiety disorder, unspecified; H91.90 Unspecified hearing loss, unspecified ear; M1A.9XX0 Chronic gout, unspecified, without tophus (tophi); N18.2 Chronic kidney disease, stage 2 (mild); N32.81 Overactive bladder; N40.1 Benign prostatic hyperplasia with lower urinary tract symptoms; R33.8 Other retention of urine; G47.30 Sleep apnea, unspecified; K21.9 Gastro-esophageal reflux disease without esophagitis; L40.9 Psoriasis, unspecified; M19.90 Unspecified osteoarthritis, unspecified site; R26.9 Unspecified abnormalities of gait and mobility; Z66 Do not resuscitate; Z79.899 Other long term (current) drug therapy; Z79.4 Long term (current) use of insulin; Z79.52 Long term (current) use of systemic steroids; Z88.1 Allergy status to other antibiotic agents; Z87.440 Personal history of urinary (tract) infections; Z86.19 Personal history of other infectious and parasitic diseases; Z98.42 Cataract extraction status, left eye; Z98.41 Cataract extraction status, right eye; Z98.52 Vasectomy status; Z83.3 Family history of diabetes mellitus; Z81.8 Family history of other mental and behavioral disorders; Y84.6 Urinary catheterization as the cause of abnormal reaction of the patient, or of later complication, without mention of misadventure at the time of the procedure
CPT/HCPCS: 36415; 71045; 71046; 80048; 80053; 80202; 81001; 82565; 83605; 84145; 85025; 85027; 86140; 87040; 87086; 87635; 99285

== ENCOUNTER 2020-08-27 21:25 | Inpatient (IN) | payer MEDICARE, MEDICAID ==
[2020-08-27] MEDS ORDERED: MORPHINE SULFATE 4 MG/ML SYRINGE IV STA (21:35)
[2020-08-27] MEDS ORDERED: FUROSEMIDE 10 MG/ML 4 ML VIAL IV STA (21:49)
--- NOTE | 2020-08-27 22:21 | XR ---
EXAMINATION TYPE: XR chest 1V portable DATE OF EXAM: 08/27/2020 COMPARISON: 12/16/2019 HISTORY: Pneumonia TECHNIQUE: Single view FINDINGS: There is some patchy linear infiltrate and atelectasis in the lower lung clemens. There is n o obvious heart failure. Thoracic aorta is atheromatous. Bony thorax is intact. IMPRESSION: Increased infiltrate and atelectasis in the lower lobes compared to old exam. No obvious heart failure.
[2020-08-27] MEDS ORDERED: PIPERACILLIN-TAZOBACTAM 3.375 GM in SODIUM CHLORIDE 0.9% 100 ML IVPB STA (22:30)
[2020-08-27] MEDS ORDERED: AZITHROMYCIN 500 MG in SODIUM CHLORIDE 0.9% 250 ML IVPB STA (22:31)
[2020-08-27 22:57] LABS: Albumin 3.5 g/dL (3.5-5.0); Amorphous Sediment,Urine Occasional /hpf; Appearance,Urine Cloudy (Clear); Bacteria,Urine Few /hpf; Bilirubin,Urine Negative (Negative); Blood,Urine Small (Negative); Calcium 9.5 mg/dL (8.4-10.2); Color,Urine Yellow; Glucose,Urine (UA) Negative (Negative); Hyaline Casts,Urine 22 /lpf (0-2); Ketones,Urine Trace (Negative); Leukocyte Esterase,Urine Large (Negative); Mucus,Urine Rare /hpf; Nitrite,Urine Negative (Negative); Protein,Urine Trace (Negative); RBC,Urine 7 /hpf (0-5); Specific Gravity,Urine 1.021 (1.001-1.035); Squamous Epithelial Cell,Urine 1 /hpf (0-4); Total Bilirubin 1.2 mg/dL (0.2-1.3); Total Protein 6.4 g/dL (6.3-8.2); Urobilinogen,Urine <2.0 mg/dL (<2.0); WBC,Urine >182 /hpf (0-5)
[2020-08-27 23:03] LABS: Anisocytosis Slight; HCT 21.1 % (39.0-53.0); Hypochromasia Moderate; MCH 29.4 pg (25.0-35.0); MCHC 30.4 g/dL (31.0-37.0); MCV 96.8 fL (80.0-100.0); Macrocytosis Slight; Mean Platelet Volume 8.4; Platelet Count 316 k/uL (150-450); RBC 2.19 m/uL (4.30-5.90); RDW 19.4 % (11.5-15.5)
[2020-08-27 23:09] LABS: INR 0.9 (<1.2); Prothrombin Time 9.9 sec (9.0-12.0)
[2020-08-27 23:55] LABS: HGB 6.4 gm/dL (13.0-17.5)
[2020-08-28] LABS: Partial Thromboplastin Time 18.1 sec (22.0-30.0)
[2020-08-28] MEDS ORDERED: MORPHINE SULFATE 4 MG/ML SYRINGE IV STA ×2 (00:31→02:40)
--- NOTE | 2020-08-28 00:39 | ED ---
SOB HPI - General Chief Complaint: Shortness of Breath Stated Complaint: Increased Edema Time Seen by Provider: 08/27/20 21:27 Source: EMS Mode of arrival: EMS Limitations: altered mental status - History of Present Illness Initial Comments: This patient is an 85-year-old man with history of Parkinson's disease transferred from the [facility] to have evaluation for shortness of breath and noisy respirations. The patient is on hospice care at the senior living. Family was visiting today and noticed that he was much worse and wanted him to have further evaluation so he was transferred here. The patient is not able to give much additional history, due to what appears to be some underlying dementia and probably some acute delirium. MD Complaint: shortness of breath -: hour(s) - Related Data Home Medications Medication Instructions Recorded Confirmed Multivitamin [Men's Multi-Vitamin] 1 tab PO DAILY@1200 03/04/16 12/11/19 Allopurinol [Zyloprim] 300 mg PO DAILY@0800 01/07/18 12/11/19 Atorvastatin [Lipitor] 10 mg PO HS@209901/07/18 12/11/19 Carbidopa-Levodopa 25-100 mg 1 tab PO BID@1200,2100 01/07/18 12/11/19 [Sinemet 25-100 mg] Carbidopa-Levodopa 25-100 mg 2 tab PO BID@0800,17001/07/18 12/11/19 [Sinemet 25-100 mg] Nabumetone 1,000 mg PO BID@0800,1700 01/07/18 12/11/19 Potassium Chloride [Klor-Con 20] 20 meq PO DAILY@0800 01/07/18 12/11/19 Sennosides [Senna] 8.6 mg PO DAILY@0800 01/07/18 12/11/19 Tamsulosin HCl [Flomax] 0.4 mg PO DAILY@0800 01/07/18 12/11/19 metFORMIN HCL [Glucophage] 500 mg PO BID@0800,169901/07/18 12/11/19 Acetaminophen [Tylenol] 650 mg PO Q4H PRN 05/20/18 12/11/19 Lactulose [Cephulac] 30 gm PO DAILY PRN 05/20/18 12/11/19 Latanoprost/Pf [Latanoprost 0.005% 1 drop BOTH EYES HS@2100 05/20/18 12/11/19 Eye Drop] Magnesium Hydroxide [Milk of 7,200 mg PO DAILY PRN 05/20/18 12/11/19 Magnesia Concentrate] Na Phos,M-B/Na Phos,Di-Ba [Fleet 133 ml RECTAL DAILY PRN 05/20/18 12/11/19 Adult] bisacodyL [Dulcolax] 10 mg RECTAL DAILY PRN 05/20/18 12/11/19 ARIPiprazole [Abilify] 5 mg PO DAILY@0800 12/11/19 12/11/19 Brimonidine Tartrate/Timolol 1 drop BOTH EYES BID@0800,1700 12/11/19 12/11/19 [Combigan 0.2%-0.5% Eye Drops] Docusate [Colace] 100 mg PO DAILY@1700 12/11/19 12/11/19 Dorzolamide HCl [Trusopt 2%] 1 drop BOTH EYES BID@0800,1700 12/11/19 12/11/19 Furosemide [Lasix] 40 mg PO DAILY@0800 12/11/19 12/11/19 Furosemide [Lasix] 40 mg PO Q48H 12/11/19 12/11/19 Insulin Aspart See Protocol SQ 12/11/19 12/11/19 ACHS@07,11,1630,2130 Loperamide HCl [Imodium A-D] 4 mg PO DAILY PRN MDD 4 tabs/24hr 12/11/19 12/11/19 PARoxetine [Paxil] 10 mg PO DAILY@0800 12/11/19 12/11/19 Previous Rx's Medication Instructions Recorded Acetaminophen-Codeine 300-30mg 1 tab PO Q8H PRN #9 tab 12/16/19 [Tylenol w/codeine #3] Albuterol Nebulized [Ventolin 2.5 mg INHALATION RT-QID PRN ml 12/16/19 Nebulized] Moxifloxacin HCl [Avelox] 400 mg PO DAILY #7 tablet 12/16/19 clonazePAM 1 mg PO TID@0800,1200,1700 #9 tab 12/16/19 predniSONE 0 mg PO DIRECTED #30 tab 12/16/19 Allergies Allergy/AdvReac Type Severity Reaction Status Date / Time cephalexin [From Keflex] Allergy Unknown Verified 08/27/20 21:45 Review of Systems ROS Statement: Those systems with pertinent positive or pertinent negative responses have been documented in the HPI. ROS Other: All systems not noted in ROS Statement are negative. Limitations: ROS unobtainable due to patients medical condition Past Medical History Past Medical History: Diabetes Mellitus, GERD/Reflux, Hyperlipidemia, Osteoarthritis (OA), Prostate Disorder Additional Past Medical History / Comment(s): parkinsons, psoriasis, gout , constipation, prostate disorder, overactive bladder, GERD, hyperlipidemia, falls, gait dysfunction.bullous Pemphigoid - autoimmune skin disorder. Clarence palsy recent urinary tract infection sleep apnea will not wear machine History of Any Multi-Drug Resistant Organisms: ESBL Date of last positivie culture/infection: 08/17/19 ESBL E.coli MDRO Source:: Urine Past Surgical History: Ear Surgery, Hernia Repair, Orthopedic Surgery Additional Past Surgical History / Comment(s): Bilateral cataracts, vasectomy, bilateral knees Past Anesthesia/Blood Transfusion Reactions: Unable to Obtain Past Psychological History: Anxiety, Depression Smoking Status: Never smoker Past Alcohol Use History: None Reported Past Drug Use History: None Reported - Past Family History Mother Family Medical History: Diabetes Mellitus Father Family Medical History: No Reported History Additional Family Medical History / Comment(s): Anxiety Brother(s) Family Medical History: No Reported History Sister(s) Family Medical History: No Reported History Daughter(s) Family Medical History: No Reported History Son(s) Family Medical History: No Reported History General Exam Limitations: no limitations General appearance: obtunded, in distress Head exam: Present: atraumatic, normocephalic Eye exam: Present: normal appearance, PERRL, EOMI. Absent: scleral icterus, conjunctival injection ENT exam: Present: mucous membranes dry Neck exam: Present: full ROM. Absent: tenderness, meningismus Respiratory exam: Present: respiratory distress, rales, rhonchi. Absent: wheezes, stridor, accessory muscle use, decreased breath sounds, prolonged expiratory Cardiovascular Exam: Present: normal rhythm, tachycardia, systolic murmur, gallop. Absent: diastolic murmur, rubs GI/Abdominal exam: Present: distended, other (Ecchymosis to the anterior abdominal wall). Absent: tenderness, guarding, rebound, rigid, mass Extremities exam: Present: normal inspection, normal capillary refill, pedal edema. Absent: calf tenderness Neurological exam: Present: altered, other (No obvious focal deficit. Patient delirious and not able to fully cooperate with neurologic exam. Does follow simple commands) Skin exam: Present: warm, dry, intact, other (Ecchymosis) Course Vital Signs 08/27/20 08/27/20 08/28/20 21:36 23:02 01:00 Temperature 97.2 F L Pulse Rate 118 H 117 H 103 H Respiratory 22 22 26 H Rate Blood Pressure 123/89 126/66 O2 Sat by Pulse 92 L 93 L 99 Oximetry Medical Decision Making - Medical Decision Making Patient is an 85-year-old man transferred from senior living to have evaluation of his respiratory status and increased edema. Patient does appear septic, evaluation and labs are supporting that. The patient is started on antibiotics. Patient given morphine for comfort measures. I did discuss with family while they were at the bedside that the patient does appear to be gravely ill. - Lab Data Result diagrams: 08/27/20 22:14 08/27/20 22:14 Lab Results 08/27/20 08/27/20 08/27/20 Range/Units 22:14 22:14 22:14 WBC 23.7 H (3.8-10.6) k/uL RBC 2.19 L (4.30-5.90) m/uL Hgb 6.4 L* (13.0-17.5) gm/dL Hct 21.1 L (39.0-53.0) % MCV 96.8 (80.0-100.0) fL MCH 29.4 (25.0-35.0) pg MCHC 30.4 L (31.0-37.0) g/dL RDW 19.4 H (11.5-15.5) % Plt Count 316 (150-450) k/uL MPV 8.4 Neutrophils % (Manual) 61 % Band Neuts % (Manual) 20 % Lymphocytes % (Manual) 17 % Monocytes % (Manual) 2 % Eosinophils % (Manual) 1 % Neutrophils # (Manual) 19.10 H (1.3-7.7) k/uL Lymphocytes # (Manual) 4.03 (1.0-4.8) k/uL Monocytes # (Manual) 0.47 (0-1.0) k/uL Eosinophils # (Manual) 0.24 (0-0.7) k/uL Nucleated RBCs 2 H (0-0) /100 WBC Manual Slide Review Performed Polychromasia Present Hypochromasia Moderate Anisocytosis Slight Anisocytosis (manual) Present Macrocytosis Slight Stomatocytes Present PT (9.0-12.0) sec INR (<1.2) APTT (22.0-30.0) sec Sodium 142 (137-145) mmol/L Potassium 6.0 H (3.5-5.1) mmol/L Chloride 104 (98-107) mmol/L Carbon Dioxide 25 (22-30) mmol/L Anion Gap 13 mmol/L BUN 104 H* (9-20) mg/dL Creatinine 2.31 H (0.66-1.25) mg/dL Est GFR (CKD-EPI)AfAm 29 (>60 ml/min/1.73 sqM) Est GFR (CKD-EPI)NonAf 25 (>60 ml/min/1.73 sqM) Glucose 188 H (74-99) mg/dL Calcium 9.5 (8.4-10.2) mg/dL Total Bilirubin 1.2 (0.2-1.3) mg/dL AST 35 (17-59) U/L ALT 7 (4-49) U/L Alkaline Phosphatase 93 (38-126) U/L Troponin I (0.000-0.034) ng/mL NT-Pro-B Natriuret Pep pg/mL Total Protein 6.4 (6.3-8.2) g/dL Albumin 3.5 (3.5-5.0) g/dL Urine Color Yellow Urine Appearance Cloudy (Clear) Urine pH 5.0 (5.0-8.0) Ur Specific [place] 1.021 (1.001-1.035) Urine Protein Trace H (Negative) Urine Glucose (UA) Negative (Negative) Urine Ketones Trace H (Negative) Urine Blood Small H (Negative) Urine Nitrite Negative (Negative) Urine Bilirubin Negative (Negative) Urine Urobilinogen <2.0 (<2.0) mg/dL Ur Leukocyte Esterase Large H (Negative) Urine RBC 7 H (0-5) /hpf Urine WBC >182 H (0-5) /hpf Urine WBC Clumps Many H (None) /hpf Ur Squamous Epith Cells 1 (0-4) /hpf Amorphous Sediment Occasional H (None) /hpf Urine Bacteria Few H (None) /hpf Hyaline Casts 22 H (0-2) /lpf Urine Mucus Rare H (None) /hpf 08/27/20 08/27/20 08/27/20 Range/Units 22:14 22:14 22:14 WBC (3.8-10.6) k/uL RBC (4.30-5.90) m/uL Hgb (13.0-17.5) gm/dL Hct (39.0-53.0) % MCV (80.0-100.0) fL MCH (25.0-35.0) pg MCHC (31.0-37.0) g/dL RDW (11.5-15.5) % Plt Count (150-450) k/uL MPV Neutrophils % (Manual) % Band Neuts % (Manual) % Lymphocytes % (Manual) % Monocytes % (Manual) % Eosinophils % (Manual) % Neutrophils # (Manual) (1.3-7.7) k/uL Lymphocytes # (Manual) (1.0-4.8) k/uL Monocytes # (Manual) (0-1.0) k/uL Eosinophils # (Manual) (0-0.7) k/uL Nucleated RBCs (0-0) /100 WBC Manual Slide Review Polychromasia Hypochromasia Anisocytosis Anisocytosis (manual) Macrocytosis Stomatocytes PT 9.9 (9.0-12.0) sec INR 0.9 (<1.2) APTT 18.1 L (22.0-30.0) sec Sodium (137-145) mmol/L Potassium (3.5-5.1) mmol/L Chloride (98-107) mmol/L Carbon Dioxide (22-30) mmol/L Anion Gap mmol/L BUN (9-20) mg/dL Creatinine (0.66-1.25) mg/dL Est GFR (CKD-EPI)AfAm (>60 ml/min/1.73 sqM) Est GFR (CKD-EPI)NonAf (>60 ml/min/1.73 sqM) Glucose (74-99) mg/dL Calcium (8.4-10.2) mg/dL Total Bilirubin (0.2-1.3) mg/dL AST (17-59) U/L ALT (4-49) U/L Alkaline Phosphatase (38-126) U/L Troponin I 0.074 H* (0.000-0.034) ng/mL NT-Pro-B Natriuret Pep 6100 pg/mL Total Protein (6.3-8.2) g/dL Albumin (3.5-5.0) g/dL Urine Color Urine Appearance (Clear) Urine pH (5.0-8.0) Ur Specific [place] (1.001-1.035) Urine Protein (Negative) Urine Glucose (UA) (Negative) Urine Ketones (Negative) Urine Blood (Negative) Urine Nitrite (Negative) Urine Bilirubin (Negative) Urine Urobilinogen (<2.0) mg/dL Ur Leukocyte Esterase (Negative) Urine RBC (0-5) /hpf Urine WBC (0-5) /hpf Urine WBC Clumps (None) /hpf Ur Squamous Epith Cells (0-4) /hpf Amorphous Sediment (None) /hpf Urine Bacteria (None) /hpf Hyaline Casts (0-2) /lpf Urine Mucus (None) /hpf - EKG Data -: EKG Interpreted by Hi EKG shows normal: sinus rhythm, axis (Normal), intervals (CT interval 164 ms, QTC 446 ms, both normal. QRS duration 136 ms, prolonged consistent with a right bundle-branch block.), QRS complexes (Right bundle-branch block.) Rate: tachycardia (Rate 105 bpm) Disposition Clinical Impression: Congestive heart failure, Sepsis, Anemia, Acute renal failure, Pneumonia, Urinary tract infection, Elevated troponin I level Disposition: ADMITTED IP TO THIS [facility] Condition: Critical Referrals: Shiva Storm MD [Primary Care Provider] - 1-2 days
[2020-08-28 00:45] LABS: Anisocytosis (M) Present; Band Neutrophils % 20 %; Eosinophils # (M) 0.24 k/uL (0-0.7); Lymphocytes # (M) 4.03 k/uL (1.0-4.8); Monocytes # (M) 0.47 k/uL (0-1.0); Neutrophils % (M) 61 %; Nucleated Red Blood Cells 2 /100 WBC (0-0); Polychromasia Present; Stomatocytes Present; Total Cells Counted 200; WBC 23.7 k/uL (3.8-10.6)
[2020-08-28] MEDS: SODIUM CHLORIDE 0.9% 1,000 ML IV SCH ×2 (01:33→08:52)
[2020-08-28] MEDS ORDERED: MORPHINE SULFATE 4 MG/ML SYRINGE IV PRN (02:40)
[2020-08-28] MEDS ORDERED: PIPERACILLIN-TAZOBACTAM 3.375 GM in SODIUM CHLORIDE 0.9% 100 ML IVPB SCH (08:00)
[2020-08-28 08:55] VITALS: BP 150/66; PULSE 78; TEMP 98.8
[2020-08-28] MEDS ORDERED: ENOXAPARIN 30 MG/0.3 ML SYRINGE SQ SCH (09:00)
[2020-08-28] MEDS ORDERED: PANTOPRAZOLE 40 MG/10 ML VIAL IV SCH (09:00)
[2020-08-28 09:53] VITALS: RESP 24
[2020-08-28 12:38] VITALS: BMI 25.0
[2020-08-28] MEDS ORDERED: ATROPINE OPHTH SOLN 1% 5ML BTL SUBLINGUAL SCH (13:00)
[2020-08-28] MEDS ORDERED: SCOPOLAMINE 1.5MG/72HR PATCH TRANSDERM SCH (13:00)
--- NOTE | 2020-08-28 14:35 | P.HPIM ---
History of Present Illness H&P Date: 08/28/20 85-year-old male patient of Dr. Storm been in [facility] for the last 4 years with history of advance psoriasis, history of pemphigoid with recurrent exacerbation every 2 years who has been on steroids for the last few weeks who also had significant Parkinson disease, type 2 diabetes, hypertension and hyperlipidemia., Patient has been placed in hospice care, for the past 6 months, and was found to have acute change in condition, after feedings yesterday. Patient started to have mottling, bluish discoloration, loud respirations, despite the hospice condition, the daughter and the rest of the f amily members think that it is still appropriate for the father to be sent to the emergency room, to see if there is anything else that they can do to salvage the father. I've spoken to the nurse at group home, as per nursing staff, patient is already actively dying, but because off the family's request, patient was subsequently seen in the emergency room. Next He was seen by the emergency room physician, for which again the hospice situation came up, they have given him morphine for comfort, the daughter insists on getting active treatments, but no invasive treatments was desired. When seen, patient has tachypnea, loud respirations, multi-organ abnormalities noted including azotemia, hyperkalemia, and significant kidney failure. Creatinine was normal in November 0.9, creatinine is currently around 2.5 on ER admission. Patient's also septic, critically ill, has pyuria in the Larry, he has long-term Larry catheter used for urinary retention. He was started on IV Zosyn, with consult to Dr. Fonseca, and Dr. Abhijit cantor, in the hopes that there is something else that could be done. Upon my evaluation with the patient, the family members or they have decided on full hospice care, this would not be a survivable condition, patient is having loud respirations from aspiration, suction is in place, the patient's Dr. Groves is an ICU nurse, and was helping with the suctioning off secretions. Hospice nurse has come by, and family members have decided on the hospice the patient, for which no intervention would be done, including IV antibiotics, IV morphine was started, and would be admitted into the hospice care program. Once stabilized for symptom control, patient can return to [facility] for further hospice care. Scopolamine patches added, atropine oral drops, Ativan when necessary, and IV morphine all initiated with the consent of the daughter. Review of Systems ROS unobtainable: due to mental status Cardiovascular: Reports dyspnea on exertion, Reports shortness of breath Gastrointestinal: Reports as per HPI Genitourinary: Reports decreased libido Integumentary: Reports as per HPI Neurological: Reports as per HPI Psychiatric: Reports as per HPI Endocrine: Reports as per HPI Hematologic/Lymphatic: Reports as per HPI Allergic/Immunologic: Reports as per HPI Past Medical History Past Medical History: Diabetes Mellitus, GERD/Reflux, Hyperlipidemia, Osteoarthritis (OA), Prostate Disorder Additional Past Medical History / Comment(s): parkinsons, psoriasis, gout , constipation, prostate disorder, overactive bladder, GERD, hyperlipidemia, falls, gait dysfunction.bullous Pemphigoid - autoimmune skin disorder. [place] palsy recent urinary tract infection sleep apnea will not wear machine History of Any Multi-Drug Resistant Organisms: ESBL Date of last positivie culture/infection: 08/17/19 ESBL E.coli MDRO Source:: Urine Past Surgical History: Ear Surgery, Hernia Repair, Orthopedic Surgery Additional Past Surgical History / Comment(s): Bilateral cataracts, vasectomy, bilateral knees Past Anesthesia/Blood Transfusion Reactions: Unable to Obtain Past Psychological History: Anxiety, Depression Smoking Status: Never smoker Past Alcohol Use History: None Reported Past Drug Use History: None Reported - Past Family History Mother Family Medical History: Diabetes Mellitus Father Family Medical History: No Reported History Additional Family Medical History / Comment(s): Anxiety Brother(s) Family Medical History: No Reported History Sister(s) Family Medical History: No Reported History Daughter(s) Family Medical History: No Reported History Son(s) Family Medical History: No Reported History Medications and Allergies Home Medications Medication Instructions Recorded Confirmed Type Multivitamin [Men's Multi-Vitamin] 1 tab PO DAILY@1200 03/04/16 12/11/19 History Allopurinol [Zyloprim] 300 mg PO DAILY@0800 01/07/18 12/11/19 History Atorvastatin [Lipitor] 10 mg PO HS@2100 01/07/18 12/11/19 History Carbidopa-Levodopa 25-100 mg 1 tab PO BID@1200,2100 01/07/18 12/11/19 History [Sinemet 25-100 mg] Carbidopa-Levodopa 25-100 mg 2 tab PO BID@0800,1700 01/07/18 12/11/19 History [Sinemet 25-100 mg] Nabumetone 1,000 mg PO BID@0800,1700 01/07/18 12/11/19 History Potassium Chloride [Klor-Con 20] 20 meq PO DAILY@0800 01/07/18 12/11/19 History Sennosides [Senna] 8.6 mg PO DAILY@0800 01/07/18 12/11/19 History Tamsulosin HCl [Flomax] 0.4 mg PO DAILY@0800 01/07/18 12/11/19 History metFORMIN HCL [Glucophage] 500 mg PO BID@0800,1700 01/07/18 12/11/19 History Acetaminophen [Tylenol] 650 mg PO Q4H PRN 05/20/18 12/11/19 History Lactulose [Cephulac] 30 gm PO DAILY PRN 05/20/18 12/11/19 History Latanoprost/Pf [Latanoprost 0.005% 1 drop BOTH EYES HS@2100 05/20/18 12/11/19 History Eye Drop] Magnesium Hydroxide [Milk of 7,200 mg PO DAILY PRN 05/20/18 12/11/19 History Magnesia Concentrate] Na Phos,M-B/Na Phos,Di-Ba [Fleet 133 ml RECTAL DAILY PRN 05/20/18 12/11/19 History Adult] bisacodyL [Dulcolax] 10 mg RECTAL DAILY PRN 05/20/18 12/11/19 History ARIPiprazole [Abilify] 5 mg PO DAILY@0800 12/11/19 12/11/19 History Brimonidine Tartrate/Timolol 1 drop BOTH EYES BID@0800,1700 12/11/19 12/11/19 History [Combigan 0.2%-0.5% Eye Drops] Docusate [Colace] 100 mg PO DAILY@169912/11/19 12/11/19 History Dorzolamide HCl [Trusopt 2%] 1 drop BOTH EYES BID@0800,1700 12/11/19 12/11/19 History Furosemide [Lasix] 40 mg PO DAILY@0800 12/11/19 12/11/19 History Furosemide [Lasix] 40 mg PO Q48H 12/11/19 12/11/19 History Insulin Aspart See Protocol SQ 12/11/19 12/11/19 History ACHS@07,11,1630,2130 Loperamide HCl [Imodium A-D] 4 mg PO DAILY PRN MDD 4 tabs/24hr 12/11/19 12/11/19 History PARoxetine [Paxil] 10 mg PO DAILY@0800 12/11/19 12/11/19 History Acetaminophen-Codeine 300-30mg 1 tab PO Q8H PRN #9 tab 12/16/19 Rx [Tylenol w/codeine #3] Albuterol Nebulized [Ventolin 2.5 mg INHALATION RT-QID PRN ml 12/16/19 Rx Nebulized] Moxifloxacin HCl [Avelox] 400 mg PO DAILY #7 tablet 12/16/19 Rx clonazePAM 1 mg PO TID@0800,1200,1700 #9 tab 12/16/19 Rx predniSONE 0 mg PO DIRECTED #30 tab 12/16/19 Rx Allergies Allergy/AdvReac Type Severity Reaction Status Date / Time cephalexin [From Keflex] Allergy Unknown Verified 08/27/20 21:45 Physical Exam Vitals: Vital Signs Temp Pulse Resp BP Pulse Ox 08/28/20 09:07 24 08/28/20 08:54 98.8 F 78 28 H 150/66 98 08/28/20 06:50 99.1 F 74 14 100/64 08/28/20 05:35 98.1 F 91 16 135/80 99 08/28/20 05:30 16 08/28/20 04:57 98.2 F 78 12 120/74 100 08/28/20 04:27 98.4 F 78 12 103/65 100 08/28/20 04:17 98.2 F 71 12 101/64 100 08/28/20 02:37 91 16 108/61 98 08/28/20 01:00 103 H 26 H 99 08/27/20 23:02 117 H 22 126/66 93 L 08/27/20 21:36 97.2 F L 118 H 22 123/89 92 L Intake and Output 08/27/20 08/28/20 08/28/20 22:59 06:59 14:59 Intake Total 0 620 Output Total 280 Balance -280 620 Intake: Blood Product 0 620 Rc As-1 Unit 0 310 [id number] Output: Urine 280 Other: Voiding Method Indwelling Catheter Indwelling Catheter Weight 74.843 kg 74.843 kg - Constitutional General appearance: severe distress - EENT Eyes: EOMI, PERRLA ENT: hard of hearing - Respiratory Respiratory: right: rhonchi, wheezing, negative: prolonged expiration, prolonged inspiration - Cardiovascular Rhythm: regular - Gastrointestinal General gastrointestinal: normal bowel sounds, soft - Integumentary Integumentary: decreased turgor, normal - Musculoskeletal Musculoskeletal: generalized weakness - Psychiatric Obtunded Results CBC & Chem 7: 08/27/20 22:14 08/27/20 22:14 Labs: Abnormal Lab Results - Last 24 Hours (Table) 08/27/20 08/27/20 08/27/20 Range/Units 22:14 22:14 22:14 WBC 23.7 H (3.8-10.6) k/uL RBC 2.19 L (4.30-5.90) m/uL Hgb 6.4 L* (13.0-17.5) gm/dL Hct 21.1 L (39.0-53.0) % MCHC 30.4 L (31.0-37.0) g/dL RDW 19.4 H (11.5-15.5) % Neutrophils # (Manual) 19.10 H (1.3-7.7) k/uL Nucleated RBCs 2 H (0-0) /100 WBC APTT (22.0-30.0) sec Potassium 6.0 H (3.5-5.1) mmol/L BUN 104 H* (9-20) mg/dL Creatinine 2.31 H (0.66-1.25) mg/dL Glucose 188 H (74-99) mg/dL Troponin I (0.000-0.034) ng/mL Urine Protein Trace H (Negative) Urine Ketones Trace H (Negative) Urine Blood Small H (Negative) Ur Leukocyte Esterase Large H (Negative) Urine RBC 7 H (0-5) /hpf Urine WBC >182 H (0-5) /hpf Urine WBC Clumps Many H (None) /hpf Amorphous Sediment Occasional H (None) /hpf Urine Bacteria Few H (None) /hpf Hyaline Casts 22 H (0-2) /lpf Urine Mucus Rare H (None) /hpf Crossmatch 08/27/20 08/27/20 08/28/20 Range/Units 22:14 22:14 02:28 WBC (3.8-10.6) k/uL RBC (4.30-5.90) m/uL Hgb (13.0-17.5) gm/dL Hct (39.0-53.0) % MCHC (31.0-37.0) g/dL RDW (11.5-15.5) % Neutrophils # (Manual) (1.3-7.7) k/uL Nucleated RBCs (0-0) /100 WBC APTT 18.1 L (22.0-30.0) sec Potassium (3.5-5.1) mmol/L BUN (9-20) mg/dL Creatinine (0.66-1.25) mg/dL Glucose (74-99) mg/dL Troponin I 0.074 H* (0.000-0.034) ng/mL Urine Protein (Negative) Urine Ketones (Negative) Urine Blood (Negative) Ur Leukocyte Esterase (Negative) Urine RBC (0-5) /hpf Urine WBC (0-5) /hpf Urine WBC Clumps (None) /hpf Amorphous Sediment (None) /hpf Urine Bacteria (None) /hpf Hyaline Casts (0-2) /lpf Urine Mucus (None) /hpf Crossmatch See Detail Laboratory Results WBC 23.7 k/uL (3.8-10.6) H 08/27/20 22:14 RBC 2.19 m/uL (4.30-5.90) L 08/27/20 22:14 Hgb 6.4 gm/dL (13.0-17.5) L* 08/27/20 22:14 Hct 21.1 % (39.0-53.0) L 08/27/20 22:14 MCV 96.8 fL (80.0-100.0) 08/27/20 22:14 MCH 29.4 pg (25.0-35.0) 08/27/20 22:14 MCHC 30.4 g/dL (31.0-37.0) L 08/27/20 22:14 RDW 19.4 % (11.5-15.5) H 08/27/20 22:14 Plt Count 316 k/uL (150-450) 08/27/20 22:14 MPV 8.4 08/27/20 22:14 Neutrophils % (Manual) 61 % 08/27/20 22:14 Band Neuts % (Manual) 20 % 08/27/20 22:14 Lymphocytes % (Manual) 17 % 08/27/20 22:14 Monocytes % (Manual) 2 % 08/27/20 22:14 Eosinophils % (Manual) 1 % 08/27/20 22:14 Neutrophils # (Manual) 19.10 k/uL (1.3-7.7) H 08/27/20 22:14 Lymphocytes # (Manual) 4.03 k/uL (1.0-4.8) 08/27/20 22:14 Monocytes # (Manual) 0.47 k/uL (0-1.0) 08/27/20 22:14 Eosinophils # (Manual) 0.24 k/uL (0-0.7) 08/27/20 22:14 Nucleated RBCs 2 /100 WBC (0-0) H 08/27/20 22:14 Manual Slide Review Performed 08/27/20 22:14 Polychromasia Present 08/27/20 22:14 Hypochromasia Moderate 08/27/20 22:14 Anisocytosis Slight 08/27/20 22:14 Anisocytosis (manual) Present 08/27/20 22:14 Macrocytosis Slight 08/27/20 22:14 Stomatocytes Present 08/27/20 22:14 PT 9.9 sec (9.0-12.0) 08/27/20 22:14 INR 0.9 (<1.2) 08/27/20 22:14 APTT 18.1 sec (22.0-30.0) L 08/27/20 22:14 Sodium 142 mmol/L (137-145) 08/27/20 22:14 Potassium 6.0 mmol/L (3.5-5.1) H 08/27/20 22:14 Chloride 104 mmol/L (98-107) 08/27/20 22:14 Carbon Dioxide 25 mmol/L (22-30) 08/27/20 22:14 Anion Gap 13 mmol/L 08/27/20 22:14 BUN 104 mg/dL (9-20) H* 08/27/20 22:14 Creatinine 2.31 mg/dL (0.66-1.25) H 08/27/20 22:14 Est GFR (CKD-EPI)AfAm 29 (>60 ml/min/1.73 sqM) 08/27/20 22:14 Est GFR (CKD-EPI)NonAf 25 (>60 ml/min/1.73 sqM) 08/27/20 22:14 Glucose 188 mg/dL (74-99) H 08/27/20 22:14 Plasma Lactic Acid Robin 1.5 mmol/L (0.7-2.0) 08/28/20 05:03 Calcium 9.5 mg/dL (8.4-10.2) 08/27/20 22:14 Total Bilirubin 1.2 mg/dL (0.2-1.3) 08/27/20 22:14 AST 35 U/L (17-59) 08/27/20 22:14 ALT 7 U/L (4-49) 08/27/20 22:14 Alkaline Phosphatase 93 U/L (38-126) 08/27/20 22:14 Troponin I 0.074 ng/mL (0.000-0.034) H* 08/27/20 22:14 NT-Pro-B Natriuret Pep 6100 pg/mL 08/27/20 22:14 Total Protein 6.4 g/dL (6.3-8.2) 08/27/20 22:14 Albumin 3.5 g/dL (3.5-5.0) 08/27/20 22:14 Urine Color Yellow 08/27/20 22:14 Urine Appearance Cloudy (Clear) 08/27/20 22:14 Urine pH 5.0 (5.0-8.0) 08/27/20 22:14 Ur Specific [place] 1.021 (1.001-1.035) 08/27/20 22:14 Urine Protein Trace (Negative) H 08/27/20 22:14 Urine Glucose (UA) Negative (Negative) 08/27/20 22:14 Urine Ketones Trace (Negative) H 08/27/20 22:14 Urine Blood Small (Negative) H 08/27/20 22:14 Urine Nitrite Negative (Negative) 08/27/20 22:14 Urine Bilirubin Negative (Negative) 08/27/20 22:14 Urine Urobilinogen <2.0 mg/dL (<2.0) 08/27/20 22:14 Ur Leukocyte Esterase Large (Negative) H 08/27/20 22:14 Urine RBC 7 /hpf (0-5) H 08/27/20 22:14 Urine WBC >182 /hpf (0-5) H 08/27/20 22:14 Urine WBC Clumps Many /hpf (None) H 08/27/20 22:14 Ur Squamous Epith Cells 1 /hpf (0-4) 08/27/20 22:14 Amorphous Sediment Occasional /hpf (None) H 08/27/20 22:14 Urine Bacteria Few /hpf (None) H 08/27/20 22:14 Hyaline Casts 22 /lpf (0-2) H 08/27/20 22:14 Urine Mucus Rare /hpf (None) H 08/27/20 22:14 Blood Type A Positive 08/28/20 02:28 Blood Type Confirm A Positive 08/28/20 03:13 Blood Type Recheck No Previous Record 08/28/20 02:28 Bld Type Recheck Status CABO Indicated 08/28/20 02:28 Antibody Screen NEGATIVE 08/28/20 02:28 Crossmatch See Detail 08/28/20 02:28 Spec Expiration Date 08/31/2020231108/28/20 02:28 Assessment and Plan Plan: 1 Severe hypoxemic respiratory failure, with severe distress with aspiration pneumonia,, sepsis, multiorgan failure, started on IV Zosyn, with consult to infectious disease, and pulmonary Dr. Lacey, however with further discussion with the daughter, this is a not survivable illness without any intervention, they do not want any intubation, they do not want any feeding tube, and would want to withdraw treatment to include any further antibiotics and further blood work. Patient disposition to hospice care 2. Catheter related urinary tract infection, with chronic indwelling [place] catheter Zosyn started 3type 2 diabetes: Continue Accu-Chek with sliding scales coverage will hold metformin for now and might start Lantus and NovoLog before meals meals. With hospice, all these regimens will be discontinued 4. Obtundation, secondary to septic encephalopathy, remain nothing by mouth, 5 advance Parkinson disease with multiple aspirations,: Unable to swallow, carbidopa levodopa held 6 chronic diastolic congestive heart failure: Hold furosemide 40 mg daily and spironolactone. 7 hyperlipidemia: was On Lipitor 10 mg daily. Hold 8 chronic gout: Continue patient on Zyloprim 300 mg daily. 9 BPH with urinary retention: Hold tamsulosin 0.4 mg daily. Unable to swallow 10 chronic depression: 11 DVT prophylaxis: Patient will be continue on subcu heparin. 12 GI prophylaxis: Continue pantoprazole. CODE STATUS: DO NOT RESUSCITATE.
== END 2020-08-28 13:07 | disposition hospice, home (50) | DRG 871 ==
LOC: EC 21:25 → 4SSUR 08-28 01:19
PROVIDERS: ADMIT Family Medicine; ATTEND Family Medicine
PROC: 30233N1 Transfusion of Nonautologous Red Blood Cells into Peripheral Vein, Percutaneous Approach (ICD-10-PCS; principal; 2020-08-28)
DX: A41.9 Sepsis, unspecified organism (principal); J96.01 Acute respiratory failure with hypoxia; J69.0 Pneumonitis due to inhalation of food and vomit; G93.41 Metabolic encephalopathy; T83.511A Infection and inflammatory reaction due to indwelling urethral catheter, initial encounter; N39.0 Urinary tract infection, site not specified; F05 Delirium due to known physiological condition; F02.81 Dementia in other diseases classified elsewhere, unspecified severity, with behavioral disturbance; I50.32 Chronic diastolic (congestive) heart failure; N17.9 Acute kidney failure, unspecified; Z51.5 Encounter for palliative care; E11.9 Type 2 diabetes mellitus without complications; K21.9 Gastro-esophageal reflux disease without esophagitis; F41.9 Anxiety disorder, unspecified; F32.9 Major depressive disorder, single episode, unspecified; G47.30 Sleep apnea, unspecified; E78.5 Hyperlipidemia, unspecified; M19.90 Unspecified osteoarthritis, unspecified site; E87.5 Hyperkalemia; Y73.2 Prosthetic and other implants, materials and accessory gastroenterology and urology devices associated with adverse incidents; N40.1 Benign prostatic hyperplasia with lower urinary tract symptoms; M1A.9XX0 Chronic gout, unspecified, without tophus (tophi); R33.8 Other retention of urine; D64.9 Anemia, unspecified; I11.0 Hypertensive heart disease with heart failure; N32.81 Overactive bladder; R65.20 Severe sepsis without septic shock; Z66 Do not resuscitate; L40.9 Psoriasis, unspecified; K59.00 Constipation, unspecified; G20 Parkinson's disease; Z79.4 Long term (current) use of insulin; Z79.899 Other long term (current) drug therapy; Z91.81 History of falling; Z91.19 Patient's noncompliance with other medical treatment and regimen; Z79.52 Long term (current) use of systemic steroids
CPT/HCPCS: 36415; 71045; 80053; 81001; 83605; 83880; 84484; 85025; 85610; 85730; 86850; 86900; 86901; 86920; 87040; 93005; 96365; 96366; 96367; 96368; 96374; 96375; 96376; 99285

== ENCOUNTER 2020-08-28 12:35 | Inpatient (IN) | payer MEDICAID ==
[2020-08-28] MEDS ORDERED: ACETAMINOPHEN SUPPOSITORY 650 MG SUPP RECTAL PRN (12:42)
[2020-08-28] MEDS ORDERED: ONDANSETRON 4 MG/2 ML VIAL IVP PRN (12:42)
[2020-08-28] MEDS ORDERED: LORazepam 2 MG/ML INJ IV PRN (12:42)
[2020-08-28] MEDS ORDERED: SCOPOLAMINE 1.5MG/72HR PATCH TRANSDERM SCH (12:45)
[2020-08-28 14:25] VITALS: BP 128/61
--- NOTE | 2020-08-28 14:39 | P.HPIM ---
History of Present Illness H&P Date: 08/28/20 Chief Complaint: Aspiration pneumonia and severe resp distress and failure 85-year-old male patient of Dr. Storm been in [facility] for the last 4 years with history of advance psoriasis, history of pemphigoid with recurrent exacerbation every 2 years who has been on steroids for the last few weeks who also had significant Parkinson disease, type 2 diabetes, hypertension and hyperlipidemia., Patient has been placed in hospice care, for the past 6 months, and was found to have acute change in condition, after feedings yesterday. Patient started to have mottling, bluish discoloration, loud respirations, despite the hospice condition, the daughter and the [facility] think that it is still appropriate for the father to be sent to the emergency room, to see if there is anything else that they can do to salvage the father. I've spoken to the nurse at group home, as per nursing staff, patient is already actively dying, but because off the family's request, patient was subsequently seen in the emergency room. Next He was seen by the emergency room physician, for which again the hospice situation came up, they have given him morphine for comfort, the daughter insists on getting active treatments, but no invasive treatments was desired. When seen, patient has tachypnea, loud respirations, multi-organ abnormalities noted including azotemia, hyperkalemia, and significant kidney failure. Creatinine was normal in November 0.9, creatinine is currently around 2.5 on ER admission. Patient's also septic, critically ill, has pyuria in the Larry, he has long-term Larry catheter used for urinary retention. He was started on IV Zosyn, with consult to Dr. Fonseca, and Dr. Abhijit cantor, in the hopes that there is something else that could be done. Upon my evaluation with the patient, the family members or they have decided on full hospice care, this would not be a survivable condition, patient is having loud respirations from aspiration, suction is in place, the patient's Dr. Groves is an ICU nurse, and was helping with the suctioning off secretions. Hospice nurse has come by, and family members have decided on the hospice the patient, for which no intervention would be done, including IV antibiotics, IV morphine was started, and would be admitted into the hospice care program. Once stabilized for symptom control, patient can return to [facility] for further hospice care. Scopolamine patches added, atropine oral drops, Ativan when necessary, and IV morphine all initiated with the consent of the daughter. Review of Systems ROS unobtainable: due to mental status Cardiovascular: Reports dyspnea on exertion, Reports shortness of breath Gastrointestinal: Reports as per HPI Genitourinary: Reports decreased libido Integumentary: Reports as per HPI Neurological: Reports as per HPI Psychiatric: Reports as per HPI Endocrine: Reports as per HPI Hematologic/Lymphatic: Reports as per HPI Allergic/Immunologic: Reports as per HPI Past Medical History Past Medical History: Diabetes Mellitus, GERD/Reflux, Hyperlipidemia, Osteoarthritis (OA), Prostate Disorder Additional Past Medical History / Comment(s): parkinsons, psoriasis, gout , constipation, prostate disorder, overactive bladder, GERD, hyperlipidemia, falls, gait dysfunction.bullous Pemphigoid - autoimmune skin disorder. [place] palsy recent urinary tract infection sleep apnea will not wear machine History of Any Multi-Drug Resistant Organisms: ESBL Date of last positivie culture/infection: 08/17/19 ESBL E.coli MDRO Source:: Urine Past Surgical History: Ear Surgery, Hernia Repair, Orthopedic Surgery Additional Past Surgical History / Comment(s): Bilateral cataracts, vasectomy, bilateral knees Past Anesthesia/Blood Transfusion Reactions: Unable to Obtain Past Psychological History: Anxiety, Depression Smoking Status: Never smoker Past Alcohol Use History: None Reported Past Drug Use History: None Reported - Past Family History Mother Family Medical History: Diabetes Mellitus Father Family Medical History: No Reported History Additional Family Medical History / Comment(s): Anxiety Brother(s) Family Medical History: No Reported History Sister(s) Family Medical History: No Reported History Daughter(s) Family Medical History: No Reported History Son(s) Family Medical History: No Reported History Medications and Allergies Home Medications Medication Instructions Recorded Confirmed Type Multivitamin [Men's Multi-Vitamin] 1 tab PO DAILY@1200 03/04/16 12/11/19 History Allopurinol [Zyloprim] 300 mg PO DAILY@0800 01/07/18 12/11/19 History Atorvastatin [Lipitor] 10 mg PO HS@2100 01/07/18 12/11/19 History Carbidopa-Levodopa 25-100 mg 1 tab PO BID@1200,2100 01/07/18 12/11/19 History [Sinemet 25-100 mg] Carbidopa-Levodopa 25-100 mg 2 tab PO BID@0800,1700 01/07/18 12/11/19 History [Sinemet 25-100 mg] Nabumetone 1,000 mg PO BID@0800,1700 01/07/18 12/11/19 History Potassium Chloride [Klor-Con 20] 20 meq PO DAILY@0800 01/07/18 12/11/19 History Sennosides [Senna] 8.6 mg PO DAILY@0800 01/07/18 12/11/19 History Tamsulosin HCl [Flomax] 0.4 mg PO DAILY@0800 01/07/18 12/11/19 History metFORMIN HCL [Glucophage] 500 mg PO BID@0800,1700 01/07/18 12/11/19 History Acetaminophen [Tylenol] 650 mg PO Q4H PRN 05/20/18 12/11/19 History Lactulose [Cephulac] 30 gm PO DAILY PRN 05/20/18 12/11/19 History Latanoprost/Pf [Latanoprost 0.005% 1 drop BOTH EYES HS@2100 05/20/18 12/11/19 History Eye Drop] Magnesium Hydroxide [Milk of 7,200 mg PO DAILY PRN 05/20/18 12/11/19 History Magnesia Concentrate] Na Phos,M-B/Na Phos,Di-Ba [Fleet 133 ml RECTAL DAILY PRN 05/20/18 12/11/19 History Adult] bisacodyL [Dulcolax] 10 mg RECTAL DAILY PRN 05/20/18 12/11/19 History ARIPiprazole [Abilify] 5 mg PO DAILY@0800 12/11/19 12/11/19 History Brimonidine Tartrate/Timolol 1 drop BOTH EYES BID@0800,1700 12/11/19 12/11/19 History [Combigan 0.2%-0.5% Eye Drops] Docusate [Colace] 100 mg PO DAILY@1700 12/11/19 12/11/19 History Dorzolamide HCl [Trusopt 2%] 1 drop BOTH EYES BID@0800,1700 12/11/19 12/11/19 History Furosemide [Lasix] 40 mg PO DAILY@0800 12/11/19 12/11/19 History Furosemide [Lasix] 40 mg PO Q48H 12/11/19 12/11/19 History Insulin Aspart See Protocol SQ 12/11/19 12/11/19 History ACHS@07,11,1630,2130 Loperamide HCl [Imodium A-D] 4 mg PO DAILY PRN MDD 4 tabs/24hr 12/11/19 12/11/19 History PARoxetine [Paxil] 10 mg PO DAILY@0800 12/11/19 12/11/19 History Acetaminophen-Codeine 300-30mg 1 tab PO Q8H PRN #9 tab 12/16/19 Rx [Tylenol w/codeine #3] Albuterol Nebulized [Ventolin 2.5 mg INHALATION RT-QID PRN ml 12/16/19 Rx Nebulized] Moxifloxacin HCl [Avelox] 400 mg PO DAILY #7 tablet 12/16/19 Rx clonazePAM 1 mg PO TID@0800,1200,1700 #9 tab 12/16/19 Rx predniSONE 0 mg PO DIRECTED #30 tab 12/16/19 Rx Allergies Allergy/AdvReac Type Severity Reaction Status Date / Time cephalexin [From Keflex] Allergy Unknown Verified 08/27/20 21:45 Physical Exam Vitals: Intake and Output 08/27/20 08/28/20 08/28/20 22:59 06:59 14:59 Other: Weight 74 kg - Constitutional General appearance: severe distress - EENT Eyes: EOMI, PERRLA ENT: hard of hearing - Respiratory Respiratory: right: rhonchi, wheezing, negative: prolonged expiration, prolonged inspiration - Cardiovascular Rhythm: regular - Gastrointestinal General gastrointestinal: normal bowel sounds, soft - Integumentary Integumentary: decreased turgor, normal - Musculoskeletal Musculoskeletal: generalized weakness - Psychiatric Obtunded Assessment and Plan Plan: 1 Severe hypoxemic respiratory failure, with severe distress with aspiration pneumonia,, sepsis, multiorgan failure, started on IV Zosyn, with consult to infectious disease, and pulmonary Dr. Lacey, however with further discussion with the daughter, this is a not survivable illness without any intervention, they do not want any intubation, they do not want any feeding tube, and would want to w ithdraw treatment to include any further antibiotics and further blood work. Patient disposition to hospice care 2. Catheter related urinary tract infection, with chronic indwelling Larry catheter Zosyn started discontinued 3. Azotemia with acute renal failure, secondary to sepsis 4Electrolyte abnormality, with hyperkalemia and severe leukocytosis, leukemoid reaction 3type 2 diabetes: Continue Accu-Chek with sliding scales coverage will hold metformin for now and might start Lantus and NovoLog before meals meals. With hospice, all these regimens will be discontinued 4. Obtundation, secondary to septic encephalopathy, remain nothing by mouth, 5 advance Parkinson disease with multiple aspirations,: Unable to swallow, carbidopa levodopa held 6 chronic diastolic congestive heart failure: Hold furosemide 40 mg daily and spironolactone. 7 hyperlipidemia: was On Lipitor 10 mg daily. Hold 8 chronic gout: Medications on hold 9 BPH with urinary retention: Hold tamsulosin 0.4 mg daily. Unable to swallow 10 chronic depression: 11 DVT prophylaxis discontinue subcu heparin. 12 GI prophylaxis: Discontinue pantoprazole. CODE STATUS: Hospice, IV morphine, scopolamine patch, atropine drops, IV Ativan when necessary Prognosis grave, not expected to survive
[2020-08-28] MEDS: MORPHINE SULFATE (100 MG/2 ML) 100 MG in SODIUM CHLORIDE 0.9% 100 ML IV SCH (15:20)
[2020-08-28] MEDS: ATROPINE OPHTH SOLN 1% 5ML BTL SUBLINGUAL PRN ×2 (15:27→20:08)
[2020-08-29] MEDS: ATROPINE OPHTH SOLN 1% 5ML BTL SUBLINGUAL PRN ×3 (00:12→15:49)
[2020-08-29 06:07] VITALS: PULSE 78; RESP 20; TEMP 101.1
[2020-08-29] MEDS: MORPHINE SULFATE (100 MG/2 ML) 100 MG in SODIUM CHLORIDE 0.9% 100 ML IV SCH (15:48)
--- NOTE | 2020-08-29 17:09 | P.PN ---
Subjective Progress Note Date: 08/29/20 85-year-old male patient of Dr. Storm been in [facility] for the last 4 years with history of advance psoriasis, history of pemphigoid with recurrent exacerbation every 2 years who has been on steroids for the last few weeks who also had significant Parkinson disease, type 2 diabetes, hypertension and hyper lipidemia., Patient has been placed in hospice care, for the past 6 months, and was found to have acute change in condition, after feedings yesterday. Patient started to have mottling, bluish discoloration, loud respirations, despite the hospice condition, the daughter and the rest of the family members think that it is still appropriate for the father to be sent to the emergency room, to see if there is anything else that they can do to salvage the father. [facility], as per nursing staff, patient is already actively dying, but because off the family's request, patient was subsequently seen in the emergency room. Next He was seen by the emergency room physician, for which again the hospice situation came up, they have given him morphine for comfort, the daughter insists on getting active treatments, but no invasive treatments was desired. When seen, patient has tachypnea, loud respirations, multi-organ abnormalities noted including azotemia, hyperkalemia, and significant kidney failure. Creatinine was normal in November 0.9, creatinine is currently around 2.5 on ER admission. Patient's also septic, critically ill, has pyuria in the Larry, he h as long-term Larry catheter used for urinary retention. He was started on IV Zosyn, with consult to Dr. Fonseca, and Dr. Abhijit cantor, in the hopes that there is something else that could be done. Upon my evaluation with the patient, the family members or they have decided on full hospice care, this would not be a survivable condition, patient is having loud respirations from aspiration, suction is in place, the patient's Dr. Groves is an ICU nurse, and was helping with the suctioning off secretions. Hospice nurse has come by, and family members have decided on the hospice the patient, for which no intervention would be done, including IV antibiotics, IV morphine was started, and would be admitted into the hospice care program. Once stabilized for symptom control, patient can return to [facility] for further hospice care. Scopolamine patches added, atropine oral drops, Ativan when necessary, and IV morphine all initiated with the consent of the daughter 08/29: Patient has less risk for distress, still with audible rhonchi, breathing is slowed down significantly, however he remains to be comfortable. One of his sons are at bedside, and is updated with regards to patient's condition, as the patient's declining further, most likely the patient would during this current hospitalization, under the hospice program. Most likely would not make it out to [place], however this remains to be determined. Objective - Vital Signs Vital signs: Vital Signs Temp 101.1 F H 08/29/20 06:07 Pulse 78 08/29/20 06:07 Resp 20 08/29/20 06:07 BP 128/61 08/28/20 14:23 Pulse Ox 100 08/28/20 14:23 Intake & Output 08/28/20 08/29/20 08/29/20 18:59 06:59 18:59 Intake Total 15.989 39.40 Output Total 1450 Balance -1434.011 39.40 Weight 74 kg Intake: Intake, IV Titration 15.989 39.40 Amount Morphine Sulfate (100 mg/ 15.989 39.40 2 ml) 100 mg In Sodium Chloride 0.9% 100 ml @ 1 MG/HR 1.02 mls/hr IV . Q24H [facility] Rx#:[id number] Output: Urine 1450 Other: Voiding Method Indwelling Catheter Indwelling Catheter - Exam Obtunded - Constitutional General appearance: Present: mild distress - Respiratory Respiratory: bilateral: rales, rhonchi - Cardiovascular Rhythm: regular - Gastrointestinal General gastrointestinal: Present: normal bowel sounds, soft Assessment and Plan Plan: 1 Severe hypoxemic respiratory failure, with severe distress with aspiration pneumonia,, sepsis, multiorgan failure, started on IV Zosyn, with consult to infectious disease, and pulmonary Dr. Lacey, however with further discussion with the daughter, this is a not survivable illness without any intervention, they do not want any intubation, they do not want any feeding tube, and would want to withdraw treatment to include any further antibiotics and further blood work. Patient disposition to hospice care 2. Catheter related urinary tract infection, with chronic indwelling Larry catheter Zosyn started discontinued 3. Azotemia with acute renal failure, secondary to sepsis 4Electrolyte abnormality, with hyperkalemia and severe leukocytosis, leukemoid reaction 3type 2 diabetes: Continue Accu-Chek with sliding scales coverage will hold metformin for now and might start Lantus and NovoLog before meals meals. With hospice, all these regimens will be discontinued 4. Obtundation, secondary to septic encephalopathy, remain nothing by mouth, 5 advance Parkinson disease with multiple aspirations,: Unable to swallow, carbidopa levodopa held 6 chronic diastolic congestive heart failure: Hold furosemide 40 mg daily and spironolactone. 7 hyperlipidemia: was On Lipitor 10 mg daily. Hold 8 chronic gout: Medications on hold 9 BPH with urinary retention: Hold tamsulosin 0.4 mg daily. Unable to swallow 10 chronic depression: 11 DVT prophylaxis discontinue subcu heparin. 12 GI prophylaxis: Discontinue pantoprazole. CODE STATUS: Hospice, IV morphine, scopolamine patch, atropine drops, IV Ativan when necessary Prognosis grave, not expected to survive
== END 2020-08-29 18:45 | disposition expired | DRG 951 ==
LOC: 4SSUR 12:55
PROVIDERS: ADMIT Family Medicine; ATTEND Family Medicine
DX: Z51.5 Encounter for palliative care (principal); A41.9 Sepsis, unspecified organism; G93.41 Metabolic encephalopathy; J69.0 Pneumonitis due to inhalation of food and vomit; J80 Acute respiratory distress syndrome; R65.20 Severe sepsis without septic shock; N39.0 Urinary tract infection, site not specified; T83.518A Infection and inflammatory reaction due to other urinary catheter, initial encounter; I50.32 Chronic diastolic (congestive) heart failure; N17.9 Acute kidney failure, unspecified; L12.0 Bullous pemphigoid; D72.823 Leukemoid reaction; E11.9 Type 2 diabetes mellitus without complications; E78.5 Hyperlipidemia, unspecified; E87.5 Hyperkalemia; F32.9 Major depressive disorder, single episode, unspecified; F41.9 Anxiety disorder, unspecified; G20 Parkinson's disease; I11.0 Hypertensive heart disease with heart failure; L40.9 Psoriasis, unspecified; R29.6 Repeated falls; K59.00 Constipation, unspecified; M1A.9XX0 Chronic gout, unspecified, without tophus (tophi); N32.81 Overactive bladder; N40.1 Benign prostatic hyperplasia with lower urinary tract symptoms; R33.8 Other retention of urine; Y84.6 Urinary catheterization as the cause of abnormal reaction of the patient, or of later complication, without mention of misadventure at the time of the procedure; Z79.84 Long term (current) use of oral hypoglycemic drugs; Z79.899 Other long term (current) drug therapy; Z91.81 History of falling; Z88.1 Allergy status to other antibiotic agents